=== PATIENT | male | born 1965 | race Hispanic/Latino ===

== ENCOUNTER 2021-11-12 17:55 | Inpatient (IN) | payer BC ==
[2021-11-12] MEDS ORDERED: Vancomycin 1 GM/200 ML BAG ONE (18:35)
[2021-11-12] MEDS ORDERED: Labetalol HCl 100 MG/20 ML VIAL ONE (18:35)
[2021-11-12 18:49] LABS: #Basophils 0.1 thou/uL (0.0-0.2); #Eosinphils 0.3 thou/uL (0.0-0.7); #Lymphocytes 0.9 thou/uL (1.20-3.40); #Monocytes 0.6 thou/uL (0.11-0.59); #Neutrophils 6.8 thou/uL (1.40-6.50); %Basophils 0.8 % (0.0-1.0); %Eosinophils 3.8 % (0.0-10.0); %Lymphocytes 10.4 % (21.0-51.0); %Monocytes 6.4 % (0.0-10.0); %Neutrophils 78.5 % (42.0-75.0); Hemoglobin 14.7 g/dL (14.0-18.0); Mean Corpuscular HGB CONC 31.2 g/dL (32.0-36.0); Mean Corpuscular Hemoglobin 26.9 pg (27.0-31.0); Mean Platelet Volume 8.2 fL (7.4-10.4); Platelet Count 265 thou/uL (130-400); RBC Distribution Width 13.1 % (11.5-14.5); Red Blood Cell (RBC) Count 5.47 mill/uL (4.70-6.10); White Blood Cell (WBC) Count 8.7 thou/uL (4.8-10.8)
[2021-11-12] MEDS ORDERED: hydrALAZINE 20 MG/ML VIAL ONE (18:58)
[2021-11-12] MEDS ORDERED: Cefepime 1 GM VIAL ONE (19:02)
[2021-11-12 19:08] LABS: ALT (SGPT) 24 U/L (8-55); AST (SGOT) 23 U/L (5-34); Albumin 3.4 g/dL (3.5-5.0); Alkaline Phosphatase 237 U/L (40-110); Anion Gap 13 mmol/L (10-20); BUN (Urea Nitrogen) 23 mg/dL (8.4-25.7); Bilirubin, Total 0.4 mg/dL (0.2-1.2); Calc. Creatinine Clearance 0 mL/min (70-130); Calcium 9.2 mg/dL (7.8-10.44); Carbon Dioxide 24 mmol/L (22-29); Chloride 102 mmol/L (98-107); Glucose 332 mg/dL (70-105); Potassium 4.3 mmol/L (3.5-5.1); Protein, Total 7.4 g/dL (6.0-8.3); Sodium 135 mmol/L (136-145)
[2021-11-12] MEDS ORDERED: Aspirin 325 MG TAB ONE (20:22)
[2021-11-12] MEDS ORDERED: Insulin Regular 300 UNITS/3 ML VIAL ONE ×2 (20:36→20:38)
[2021-11-12] MEDS ORDERED: Ondansetron ODT 4 MG TAB PO PRN (20:48)
[2021-11-12] MEDS ORDERED: Ondansetron PF 4 MG/2 ML Vial IVP PRN (20:48)
[2021-11-12] MEDS ORDERED: Dextrose 5% in Water 1,000 ML IV PRN (20:48)
[2021-11-12] MEDS ORDERED: Acetaminophen 650 MG Suppository PR PRN (20:48)
[2021-11-12] MEDS ORDERED: Dextrose 50% Abboject 50 ML SYRINGE SLOW IVP PRN (20:48)
[2021-11-12] MEDS ORDERED: Piperacillin/Tazobactam 3.375 GM in Sodium Chloride 0.9% 100 ML IVPB SCH (22:00)
[2021-11-12] MEDS ORDERED: Amlodipine 10 MG TAB PO SCH (22:15)
[2021-11-12] MEDS: HumaLOG 300 UNITS/3 ML VIAL SC PRN (22:22)
[2021-11-12] MEDS: hydrALAZINE 20 MG/ML VIAL SLOW IVP PRN (22:22)
[2021-11-12 22:45] LABS: Troponin I 0.033 ng/mL (< 0.028)
[2021-11-13] MEDS: Piperacillin/Tazobactam 3.375 GM in Sodium Chloride 0.9% 100 ML IVPB SCH ×3 (02:27→17:56)
[2021-11-13] MEDS: hydrALAZINE 20 MG/ML VIAL SLOW IVP PRN ×2 (04:51→17:57)
[2021-11-13 04:56] LABS: #Basophils 0.1 thou/uL (0.0-0.2); #Eosinphils 0.3 thou/uL (0.0-0.7); #Neutrophils 8.9 thou/uL (1.40-6.50); %Basophils 0.7 % (0.0-1.0); %Eosinophils 2.6 % (0.0-10.0); %Monocytes 8.5 % (0.0-10.0); %Neutrophils 79.2 % (42.0-75.0); Hemoglobin 14.3 g/dL (14.0-18.0); Mean Corpuscular HGB CONC 30.9 g/dL (32.0-36.0); Mean Corpuscular Hemoglobin 26.8 pg (27.0-31.0); Mean Corpuscular Volume 86.7 fL (78.0-98.0); Mean Platelet Volume 8.5 fL (7.4-10.4); Platelet Count 265 thou/uL (130-400); RBC Distribution Width 13.2 % (11.5-14.5); Red Blood Cell (RBC) Count 5.33 mill/uL (4.70-6.10); White Blood Cell (WBC) Count 11.2 thou/uL (4.8-10.8)
[2021-11-13 05:12] LABS: Hemoglobin A1c 7.9 % (4.0-6.0)
[2021-11-13 05:24] LABS: Anion Gap 11 mmol/L (10-20); BUN (Urea Nitrogen) 16 mg/dL (8.4-25.7); Calc. Creatinine Clearance 119 mL/min (70-130); Calcium 8.9 mg/dL (7.8-10.44); Carbon Dioxide 27 mmol/L (22-29); Chloride 105 mmol/L (98-107); Glucose 150 mg/dL (70-105); Potassium 3.9 mmol/L (3.5-5.1); Sodium 139 mmol/L (136-145)
[2021-11-13] MEDS ORDERED: Losartan 25 MG TAB PO SCH (09:00)
[2021-11-13] MEDS: Amlodipine 10 MG TAB PO SCH (09:14)
[2021-11-13] MEDS: Enoxaparin Sodium 40 MG/0.4 ML SYRINGE SC SCH (09:15)
[2021-11-13 11:46] LABS: SARS-CoV-2 PCR by NAA Not Detected (NotDetected)
[2021-11-13 14:45] VITALS: BMI 29.9
[2021-11-13] MEDS: HumaLOG 300 UNITS/3 ML VIAL SC PRN (23:06)
[2021-11-14] MEDS: Piperacillin/Tazobactam 3.375 GM in Sodium Chloride 0.9% 100 ML IVPB SCH ×3 (02:38→18:14)
[2021-11-14] MEDS: hydrALAZINE 20 MG/ML VIAL SLOW IVP PRN (04:12)
[2021-11-14 05:28] LABS: ALT (SGPT) 25 U/L (8-55); AST (SGOT) 22 U/L (5-34); Albumin 3.3 g/dL (3.5-5.0); Alkaline Phosphatase 190 U/L (40-110); Anion Gap 13 mmol/L (10-20); BUN (Urea Nitrogen) 18 mg/dL (8.4-25.7); Bilirubin, Total 0.6 mg/dL (0.2-1.2); Calc. Creatinine Clearance 110 mL/min (70-130); Calcium 9.4 mg/dL (7.8-10.44); Carbon Dioxide 24 mmol/L (22-29); Chloride 104 mmol/L (98-107); Glucose 154 mg/dL (70-105); Potassium 3.9 mmol/L (3.5-5.1); Protein, Total 7.3 g/dL (6.0-8.3); Sodium 137 mmol/L (136-145)
[2021-11-14 08:36] LABS: #Eosinphils 0.4 thou/uL (0.0-0.7); #Monocytes 0.8 thou/uL (0.11-0.59); #Neutrophils 8.1 thou/uL (1.40-6.50); %Basophils 0.5 % (0.0-1.0); %Eosinophils 4.1 % (0.0-10.0); %Lymphocytes 9.4 % (21.0-51.0); %Monocytes 7.4 % (0.0-10.0); %Neutrophils 78.6 % (42.0-75.0); Hemoglobin 15.2 g/dL (14.0-18.0); Mean Corpuscular HGB CONC 30.7 g/dL (32.0-36.0); Mean Corpuscular Hemoglobin 26.7 pg (27.0-31.0); Mean Corpuscular Volume 87.3 fL (78.0-98.0); Mean Platelet Volume 8.8 fL (7.4-10.4); Platelet Count 300 thou/uL (130-400); RBC Distribution Width 13.6 % (11.5-14.5); White Blood Cell (WBC) Count 10.3 thou/uL (4.8-10.8)
[2021-11-14] MEDS: Amlodipine 10 MG TAB PO SCH (09:48)
[2021-11-14] MEDS: Enoxaparin Sodium 40 MG/0.4 ML SYRINGE SC SCH (09:48)
[2021-11-14] MEDS: Losartan 25 MG TAB PO SCH (09:49)
[2021-11-14] MEDS ORDERED: Piperacillin/Tazobactam 3.375 GM VIAL ONE (09:52)
[2021-11-14] MEDS: HumaLOG 300 UNITS/3 ML VIAL SC PRN ×2 (18:14→20:15)
[2021-11-14] MEDS ORDERED: Metoprolol Tartrate 25 MG TAB PO SCH (21:00)
[2021-11-15] MEDS: Piperacillin/Tazobactam 3.375 GM in Sodium Chloride 0.9% 100 ML IVPB SCH ×3 (01:27→18:40)
[2021-11-15] MEDS: hydrALAZINE 20 MG/ML VIAL SLOW IVP PRN (04:49)
[2021-11-15] MEDS: Amlodipine 10 MG TAB PO SCH (09:40)
[2021-11-15] MEDS: Losartan 25 MG TAB PO SCH (09:41)
[2021-11-15] MEDS: Metoprolol Tartrate 50 MG TAB PO SCH ×2 (09:41→20:43)
[2021-11-15] MEDS: Enoxaparin Sodium 40 MG/0.4 ML SYRINGE SC SCH (09:41)
[2021-11-15] MEDS: HumaLOG 300 UNITS/3 ML VIAL SC PRN ×2 (18:40→23:23)
[2021-11-16] MEDS: Acetaminophen 325 MG TAB PO PRN ×3 (01:25→13:14)
[2021-11-16] MEDS: hydrALAZINE 20 MG/ML VIAL SLOW IVP PRN (01:27)
[2021-11-16] MEDS: Piperacillin/Tazobactam 3.375 GM in Sodium Chloride 0.9% 100 ML IVPB SCH ×2 (01:30→09:26)
[2021-11-16] MEDS: HumaLOG 300 UNITS/3 ML VIAL SC PRN ×3 (06:17→22:10)
[2021-11-16] MEDS ORDERED: NIFEdipine XL 60 MG TAB PO SCH (09:00)
[2021-11-16] MEDS: Losartan 25 MG TAB PO SCH (09:25)
[2021-11-16] MEDS: Metoprolol Tartrate 50 MG TAB PO SCH ×2 (09:25→22:06)
[2021-11-16] MEDS: Enoxaparin Sodium 40 MG/0.4 ML SYRINGE SC SCH (09:25)
[2021-11-16] MEDS ORDERED: Doxycycline 100 MG CAP PO SCH (14:00)
[2021-11-16] MEDS: Acetaminophen/Codeine 30-300mg Tablet PO PRN (15:09)
[2021-11-16] MEDS: Doxycycline 100 MG CAP PO SCH (22:06)
[2021-11-17] MEDS: hydrALAZINE 20 MG/ML VIAL SLOW IVP PRN (03:59)
[2021-11-17] MEDS: Acetaminophen/Codeine 30-300mg Tablet PO PRN (06:01)
[2021-11-17] MEDS: Doxycycline 100 MG CAP PO SCH (08:48)
[2021-11-17] MEDS: Losartan 25 MG TAB PO SCH (08:48)
[2021-11-17] MEDS: Enoxaparin Sodium 40 MG/0.4 ML SYRINGE SC SCH (08:48)
[2021-11-17] MEDS: Metoprolol Tartrate 50 MG TAB PO SCH (08:49)
[2021-11-17] MEDS ORDERED: NIFEdipine XL 60 MG TAB PO SCH (09:00)
[2021-11-17 11:19] VITALS: BP 118/64; TEMP 97.7
== END 2021-11-17 15:31 | disposition home or self-care (01) | DRG 638 ==
LOC: ERS 17:55 → 2NO 19:34
PROVIDERS: ADMIT Internal Medicine; ATTEND Internal Medicine
DX: E11.621 Type 2 diabetes mellitus with foot ulcer (principal); E87.1 Hypo-osmolality and hyponatremia; I47.2 Ventricular tachycardia; Z20.822 Contact with and (suspected) exposure to COVID-19; I10 Essential (primary) hypertension; L97.519 Non-pressure chronic ulcer of other part of right foot with unspecified severity; I16.0 Hypertensive urgency; Z91.14 Patient's other noncompliance with medication regimen; Z79.84 Long term (current) use of oral hypoglycemic drugs; Z79.899 Other long term (current) drug therapy; Z90.49 Acquired absence of other specified parts of digestive tract
CPT/HCPCS: 36415; 36416; 71045; 80048; 80053; 82553; 83036; 83605; 83735; 83880; 84484; 85025; 85379; 87040; 87070; 87186; 87205; 93005; 93010; 93306; 96365; 96366; 96368; 96375; J0360; J0692; J1650; J1815; J2543; J3370; J3490; U0003; U0005

== ENCOUNTER 2022-04-13 06:47 | Inpatient (IN) | payer BC ==
[2022-04-13 08:24] LABS: Hemoglobin 13.4 g/dL (14.0-18.0); Mean Corpuscular HGB CONC 32.2 g/dL (32.0-36.0); Mean Corpuscular Hemoglobin 28.8 pg (27.0-31.0); Mean Corpuscular Volume 89.5 fL (78.0-98.0); Mean Platelet Volume 8.7 fL (7.4-10.4); Platelet Count 201 thou/uL (130-400); RBC Distribution Width 12.9 % (11.5-14.5); Red Blood Cell (RBC) Count 4.65 mill/uL (4.70-6.10); White Blood Cell (WBC) Count 10.6 thou/uL (4.8-10.8)
[2022-04-13 08:45] LABS: Band 7 % (5-11); Eosinophils 3 % (0-10); Lymphocytes 14 % (21-51); MDiff Complete? YES; Monocytes 8 % (0-10); Neutrophil 68 % (42-75); Platelet Morphology Comment Appears Adequate; RBC Morphology Normal
[2022-04-13 08:56] LABS: ALT (SGPT) 29 U/L (8-55); AST (SGOT) 20 U/L (5-34); Albumin 3.3 g/dL (3.5-5.0); Alkaline Phosphatase 212 U/L (40-110); Anion Gap 11 mmol/L (10-20); BUN (Urea Nitrogen) 23 mg/dL (8.4-25.7); Bilirubin, Total 0.5 mg/dL (0.2-1.2); Calc. Creatinine Clearance 0 mL/min (70-130); Calcium 9.4 mg/dL (7.8-10.44); Carbon Dioxide 22 mmol/L (22-29); Chloride 105 mmol/L (98-107); Estimated GFR 78; Glucose 264 mg/dL (70-105); Protein, Total 6.3 g/dL (6.0-8.3); Sodium 134 mmol/L (136-145)
[2022-04-13 09:15] LABS: CKMB 2.8 ng/mL (0-6.6)
[2022-04-13] MEDS ORDERED: Acetaminophen 650 MG Suppository PR PRN (11:07)
[2022-04-13] MEDS ORDERED: hydrALAZINE 20 MG/ML VIAL ONE (11:15)
[2022-04-13] MEDS ORDERED: Amlodipine 5 MG TAB ONE (11:15)
[2022-04-13] MEDS ORDERED: Ondansetron ODT 4 MG TAB PO PRN (11:22)
[2022-04-13] MEDS ORDERED: Ondansetron PF 4 MG/2 ML Vial IVP PRN (11:22)
[2022-04-13] MEDS ORDERED: Dextrose 50% Abboject 50 ML SYRINGE SLOW IVP PRN (11:37)
[2022-04-13] MEDS ORDERED: Dextrose 5% in Water 1,000 ML IV PRN (11:37)
[2022-04-13 11:56] LABS: Troponin I 0.076 ng/mL (< 0.028)
[2022-04-13 12:06] LABS: Magnesium 1.9 mg/dL (1.6-2.6)
[2022-04-13 12:17] LABS: Hemoglobin A1c 7.6 % (4.0-6.0)
[2022-04-13 13:10] VITALS: BMI 32.7
[2022-04-13] MEDS ORDERED: Amlodipine 5 MG TAB PO SCH (13:45)
[2022-04-13] MEDS ORDERED: FLU VACC QS2022-23(6MOS UP)/PF 60 MCG/0.5 ML SYRINGE IM ONE (14:30)
[2022-04-13 14:32] LABS: Troponin I 0.077 ng/mL (< 0.028)
[2022-04-13] MEDS: hydrALAZINE 20 MG/ML VIAL SLOW IVP PRN (16:23)
[2022-04-13] MEDS: Insulin Regular 300 UNITS/3 ML VIAL SC PRN (18:36)
[2022-04-13] MEDS: Famotidine 20 MG TAB PO SCH (19:42)
[2022-04-14] MEDS: hydrALAZINE 20 MG/ML VIAL SLOW IVP PRN ×4 (00:18→23:47)
[2022-04-14 05:01] LABS: #Basophils 0.1 thou/uL (0.0-0.2); #Eosinphils 0.3 thou/uL (0.0-0.7); #Lymphocytes 1.1 thou/uL (1.20-3.40); #Monocytes 0.8 thou/uL (0.11-0.59); #Neutrophils 6.6 thou/uL (1.40-6.50); %Basophils 0.8 % (0.0-1.0); %Eosinophils 3.9 % (0.0-10.0); %Lymphocytes 11.9 % (21.0-51.0); %Neutrophils 74.4 % (42.0-75.0); Hemoglobin 13.2 g/dL (14.0-18.0); Mean Corpuscular HGB CONC 31.6 g/dL (32.0-36.0); Mean Corpuscular Hemoglobin 28.4 pg (27.0-31.0); Mean Corpuscular Volume 89.7 fl (78.0-98.0); Mean Platelet Volume 8.9 fL (7.4-10.4); Platelet Count 214 thou/uL (130-400); RBC Distribution Width 12.9 % (11.5-14.5); Red Blood Cell (RBC) Count 4.65 mill/uL (4.70-6.10); White Blood Cell (WBC) Count 8.9 thou/uL (4.8-10.8)
[2022-04-14 05:20] LABS: Iron Binding Capacity, Total 358 mcg/dL (261-462)
[2022-04-14 05:21] LABS: Iron 41 ug/dL (65-175)
[2022-04-14 05:30] LABS: Anion Gap 12 mmol/L (10-20); BUN (Urea Nitrogen) 18 mg/dL (8.4-25.7); Calc. Creatinine Clearance 110 mL/min (70-130); Calcium 9.3 mg/dL (7.8-10.44); Carbon Dioxide 24 mmol/L (22-29); Chloride 105 mmol/L (98-107); Estimated GFR 102; Glucose 151 mg/dL (70-105); Iron 44 ug/dL (65-175); Iron Binding Capacity, Total 364 mcg/dL (261-462); Potassium 3.8 mmol/L (3.5-5.1); Sodium 137 mmol/L (136-145)
[2022-04-14] MEDS: Famotidine 20 MG TAB PO SCH ×2 (08:58→19:51)
[2022-04-14] MEDS ORDERED: Amlodipine 5 MG TAB PO SCH ×2 (09:00→11:45)
[2022-04-14] MEDS ORDERED: Losartan 25 MG TAB PO SCH (11:45)
[2022-04-14] MEDS: Insulin Regular 300 UNITS/3 ML VIAL SC PRN ×2 (12:40→16:52)
[2022-04-15 05:58] LABS: Anion Gap 12 mmol/L (10-20); BUN (Urea Nitrogen) 17 mg/dL (8.4-25.7); Calc. Creatinine Clearance 115 mL/min (70-130); Calcium 9.1 mg/dL (7.8-10.44); Carbon Dioxide 23 mmol/L (22-29); Chloride 104 mmol/L (98-107); Estimated GFR 103; Glucose 134 mg/dL (70-105); Potassium 3.5 mmol/L (3.5-5.1); Sodium 135 mmol/L (136-145)
[2022-04-15 06:17] LABS: Magnesium 1.7 mg/dL (1.6-2.6)
[2022-04-15] MEDS ORDERED: Electrolyte Replacement Protocol 1 EACH FS SCH (07:30)
[2022-04-15] MEDS ORDERED: Electrolyte Replacement Protocol FS PRN (07:45)
[2022-04-15] MEDS ORDERED: Magnesium 2 GM/50 ML(in water) 2 GM in Premix Bag 1 BAG IVPB SCH (08:00)
[2022-04-15] MEDS ORDERED: Losartan 25 MG TAB PO SCH (09:00)
[2022-04-15] MEDS ORDERED: Amlodipine 10 MG TAB PO SCH (09:00)
[2022-04-15] MEDS: NIFEdipine XL 60 MG TAB PO SCH (09:02)
[2022-04-15] MEDS: Famotidine 20 MG TAB PO SCH ×2 (09:04→20:51)
[2022-04-15] MEDS ORDERED: Potassium Chloride 20 MEQ TAB PO SCH (09:15)
[2022-04-15] MEDS: hydrALAZINE 20 MG/ML VIAL SLOW IVP PRN (10:32)
[2022-04-15] MEDS ORDERED: NIFEdipine XL 30 MG TAB PO SCH (16:00)
[2022-04-15] MEDS: Insulin Regular 300 UNITS/3 ML VIAL SC PRN (18:25)
[2022-04-15] MEDS: Losartan 25 MG TAB PO SCH (20:51)
[2022-04-16 05:10] LABS: Phosphorus 3.4 mg/dL (2.3-4.7)
[2022-04-16 05:18] LABS: Anion Gap 15 mmol/L (10-20); BUN (Urea Nitrogen) 20 mg/dL (8.4-25.7); Calc. Creatinine Clearance 104 mL/min (70-130); Calcium 9.3 mg/dL (7.8-10.44); Carbon Dioxide 21 mmol/L (22-29); Chloride 105 mmol/L (98-107); Estimated GFR 98; Glucose 125 mg/dL (70-105); Magnesium 2.1 mg/dL (1.6-2.6); Potassium 4.1 mmol/L (3.5-5.1); Sodium 137 mmol/L (136-145)
[2022-04-16] MEDS: Famotidine 20 MG TAB PO SCH ×2 (08:10→20:44)
[2022-04-16] MEDS: Losartan 25 MG TAB PO SCH ×2 (08:10→16:18)
[2022-04-16] MEDS: NIFEdipine XL 60 MG TAB PO SCH (08:10)
[2022-04-16] MEDS ORDERED: Regadenoson 0.4 MG/5 ML SYRINGE ONE (09:03)
[2022-04-16] MEDS: hydrALAZINE 25 MG TAB PO PRN (16:18)
[2022-04-16] MEDS: Insulin Regular 300 UNITS/3 ML VIAL SC PRN (16:45)
[2022-04-16] MEDS ORDERED: metFORMIN 500 MG TAB PO SCH (17:30)
[2022-04-17] MEDS: hydrALAZINE 25 MG TAB PO PRN ×3 (01:19→23:24)
[2022-04-17] MEDS: Acetaminophen 325 MG TAB PO PRN (04:16)
[2022-04-17] MEDS: Losartan 25 MG TAB PO SCH ×2 (05:10→19:59)
[2022-04-17] MEDS: NIFEdipine XL 60 MG TAB PO SCH (05:11)
[2022-04-17] MEDS: Famotidine 20 MG TAB PO SCH ×2 (05:11→19:59)
[2022-04-17 05:25] LABS: Anion Gap 12 mmol/L (10-20); BUN (Urea Nitrogen) 18 mg/dL (8.4-25.7); Calc. Creatinine Clearance 115 mL/min (70-130); Calcium 9.5 mg/dL (7.8-10.44); Carbon Dioxide 22 mmol/L (22-29); Chloride 105 mmol/L (98-107); Estimated GFR 103; Glucose 123 mg/dL (70-105); Potassium 4.1 mmol/L (3.5-5.1); Sodium 135 mmol/L (136-145)
[2022-04-17] MEDS ORDERED: metFORMIN 500 MG TAB PO SCH (08:00)
[2022-04-17] MEDS ORDERED: Heparin 10,000 UNITS/ 10 ML VIAL ONE (10:22)
[2022-04-17] MEDS ORDERED: Midazolam HCl 2 mg/2 ml Vial ONE (10:22)
[2022-04-17] MEDS ORDERED: FENTANYL 50 MCG/ML VIAL 50 MCG/ML VIAL ONE (10:22)
[2022-04-17] MEDS ORDERED: Lidocaine 1% (PF) 30 ML VIAL ONE (10:22)
[2022-04-17] MEDS ORDERED: Nitroglycerin 100MG/250ML BOT 0 ML ONE (10:22)
[2022-04-17] MEDS ORDERED: Acetaminophen/Codeine 30-300mg Tablet PO PRN (14:38)
[2022-04-17] MEDS ORDERED: Nitroglycerin 0.4 MG TAB (25 Tab Bottle) SL PRN (14:38)
[2022-04-17] MEDS ORDERED: Sodium Chloride 0.9% 200 ML IV PRN (14:38)
[2022-04-17] MEDS: Atorvastatin Calcium 20 MG TAB PO SCH (19:59)
[2022-04-17] MEDS: Insulin Regular 300 UNITS/3 ML VIAL SC PRN (20:54)
[2022-04-18] MEDS: Acetaminophen 325 MG TAB PO PRN (03:06)
[2022-04-18 04:54] LABS: #Basophils 0.1 thou/uL (0.0-0.2); #Eosinphils 0.4 thou/uL (0.0-0.7); #Monocytes 1.1 thou/uL (0.11-0.59); %Basophils 0.6 % (0.0-1.0); %Eosinophils 3.9 % (0.0-10.0); %Lymphocytes 9.5 % (21.0-51.0); %Monocytes 10.3 % (0.0-10.0); %Neutrophils 75.7 % (42.0-75.0); Hemoglobin 12.8 g/dL (14.0-18.0); Mean Corpuscular HGB CONC 30.6 g/dL (32.0-36.0); Mean Corpuscular Hemoglobin 27.4 pg (27.0-31.0); Mean Corpuscular Volume 89.6 fl (78.0-98.0); Mean Platelet Volume 8.3 fL (7.4-10.4); Platelet Count 214 thou/uL (130-400); RBC Distribution Width 12.8 % (11.5-14.5); Red Blood Cell (RBC) Count 4.66 mill/uL (4.70-6.10); White Blood Cell (WBC) Count 10.5 thou/uL (4.8-10.8)
[2022-04-18 05:21] LABS: ALT (SGPT) 23 U/L (8-55); AST (SGOT) 19 U/L (5-34); Albumin 3.1 g/dL (3.5-5.0); Alkaline Phosphatase 149 U/L (40-110); Anion Gap 11 mmol/L (10-20); BUN (Urea Nitrogen) 19 mg/dL (8.4-25.7); Bilirubin, Total 0.6 mg/dL (0.2-1.2); Calc. Creatinine Clearance 121 mL/min (70-130); Calcium 8.9 mg/dL (7.8-10.44); Carbon Dioxide 22 mmol/L (22-29); Chloride 106 mmol/L (98-107); Estimated GFR 105; Globulin 3.1 g/dL (2.4-3.5); Glucose 167 mg/dL (70-105); Potassium 4.1 mmol/L (3.5-5.1); Protein, Total 6.2 g/dL (6.0-8.3); Sodium 135 mmol/L (136-145)
[2022-04-18] MEDS: Clopidogrel Bisulfate 75 MG TAB PO SCH (08:30)
[2022-04-18] MEDS: Losartan 25 MG TAB PO SCH ×2 (08:30→20:09)
[2022-04-18] MEDS: NIFEdipine XL 60 MG TAB PO SCH (08:30)
[2022-04-18] MEDS: Famotidine 20 MG TAB PO SCH ×2 (08:30→20:09)
[2022-04-18] MEDS: Aspirin 81 mg Enteric Coated Tablet PO SCH (08:30)
[2022-04-18 11:14] LABS: Bacteria/HPF None Seen HPF (None Seen); Bilirubin Negative (Negative); Blood, Urine Negative (Negative); Clarity Clear (Clear); Glucose, Urine (Dipstick) >=1000 mg/dL (Negative); Ketone, Urine Negative (Negative); Leukocyte Negative Leu/uL (Negative); Nitrite Negative (Negative); Protein, Urine (Dipstick) 100 mg/dL (Neg-Trace); RBC/HPF 0-3 HPF (0-3); Specific Gravity, Urine 1.017 (1.002-1.036); Squamous Epithelial None Seen HPF (0-3); pH, Urine 6.5 (5.0-9.0)
[2022-04-18 11:15] LABS: Urine Culture Reflex Yes Yes
[2022-04-18] MEDS: Insulin Regular 300 UNITS/3 ML VIAL SC PRN ×3 (12:45→20:10)
[2022-04-18] MEDS: Atorvastatin Calcium 20 MG TAB PO SCH (20:09)
[2022-04-18] MEDS: hydrALAZINE 25 MG TAB PO PRN (23:53)
[2022-04-19] MEDS: hydrALAZINE 20 MG/ML VIAL SLOW IVP PRN (04:37)
[2022-04-19 05:19] LABS: #Basophils 0.1 thou/uL (0.0-0.2); #Eosinphils 0.4 thou/uL (0.0-0.7); #Lymphocytes 1.1 thou/uL (1.20-3.40); #Monocytes 1.1 thou/uL (0.11-0.59); #Neutrophils 8.2 thou/uL (1.40-6.50); %Basophils 0.7 % (0.0-1.0); %Eosinophils 3.4 % (0.0-10.0); %Lymphocytes 9.8 % (21.0-51.0); %Neutrophils 76.1 % (42.0-75.0); Hemoglobin 13.8 g/dL (14.0-18.0); Mean Corpuscular HGB CONC 33.6 g/dL (32.0-36.0); Mean Corpuscular Hemoglobin 30.1 pg (27.0-31.0); Mean Corpuscular Volume 89.6 fl (78.0-98.0); Mean Platelet Volume 8.3 fL (7.4-10.4); Platelet Count 230 thou/uL (130-400); RBC Distribution Width 12.6 % (11.5-14.5); Red Blood Cell (RBC) Count 4.57 mill/uL (4.70-6.10); White Blood Cell (WBC) Count 10.8 thou/uL (4.8-10.8)
[2022-04-19 05:39] LABS: ALT (SGPT) 23 U/L (8-55); AST (SGOT) 17 U/L (5-34); Albumin 3.4 g/dL (3.5-5.0); Alkaline Phosphatase 168 U/L (40-110); Anion Gap 13 mmol/L (10-20); BUN (Urea Nitrogen) 14 mg/dL (8.4-25.7); Bilirubin, Total 0.6 mg/dL (0.2-1.2); Calc. Creatinine Clearance 128 mL/min (70-130); Calcium 9.1 mg/dL (7.8-10.44); Carbon Dioxide 22 mmol/L (22-29); Chloride 106 mmol/L (98-107); Estimated GFR 107; Globulin 3.4 g/dL (2.4-3.5); Glucose 122 mg/dL (70-105); Potassium 3.8 mmol/L (3.5-5.1); Protein, Total 6.8 g/dL (6.0-8.3); Sodium 137 mmol/L (136-145)
[2022-04-19] MEDS: Aspirin 81 mg Enteric Coated Tablet PO SCH (08:12)
[2022-04-19] MEDS: Clopidogrel Bisulfate 75 MG TAB PO SCH (08:12)
[2022-04-19] MEDS: Famotidine 20 MG TAB PO SCH (08:13)
[2022-04-19] MEDS: Losartan 25 MG TAB PO SCH (08:14)
[2022-04-19] MEDS: NIFEdipine XL 60 MG TAB PO SCH (08:15)
[2022-04-19] MEDS: Insulin Regular 300 UNITS/3 ML VIAL SC PRN (11:14)
[2022-04-19 16:20] VITALS: BP 129/79; TEMP 98.1
== END 2022-04-19 17:50 | disposition home or self-care (01) | DRG 287 ==
LOC: ERS 06:47 → 2SW 11:36 → OBSVTOIN 04-15 11:11
PROVIDERS: ADMIT Internal Medicine; ATTEND Internal Medicine
PROC: 4A023N7 Measurement of Cardiac Sampling and Pressure, Left Heart, Percutaneous Approach (ICD-10-PCS; principal; 2022-04-17)
PROC: B2151ZZ Fluoroscopy of Left Heart using Low Osmolar Contrast (ICD-10-PCS; 2022-04-17)
PROC: B2111ZZ Fluoroscopy of Multiple Coronary Arteries using Low Osmolar Contrast (ICD-10-PCS; 2022-04-17)
DX: R55 Syncope and collapse (principal); Z20.822 Contact with and (suspected) exposure to COVID-19; Z23 Encounter for immunization; I47.20 Ventricular tachycardia, unspecified; I16.1 Hypertensive emergency; L97.919 Non-pressure chronic ulcer of unspecified part of right lower leg with unspecified severity; E11.9 Type 2 diabetes mellitus without complications; I10 Essential (primary) hypertension; I25.10 Atherosclerotic heart disease of native coronary artery without angina pectoris; R00.1 Bradycardia, unspecified; K40.90 Unilateral inguinal hernia, without obstruction or gangrene, not specified as recurrent; R77.8 Other specified abnormalities of plasma proteins; E87.6 Hypokalemia; E83.42 Hypomagnesemia; Z79.899 Other long term (current) drug therapy; Z79.84 Long term (current) use of oral hypoglycemic drugs; Z79.82 Long term (current) use of aspirin; Z91.011 Allergy to milk products; Z90.49 Acquired absence of other specified parts of digestive tract; Z82.49 Family history of ischemic heart disease and other diseases of the circulatory system; Z83.3 Family history of diabetes mellitus
CPT/HCPCS: 36415; 36416; 70450; 71045; 74176; 76936; 78452; 80048; 80053; 81001; 82553; 83036; 83540; 83550; 83735; 84100; 84443; 84484; 85025; 87086; 90471; 90686; 90732; 93005; 93017; 93306; 94760; 96374; 96375; 97139; A9500; G0008; G0009; G0378; J0360; J1644; J1815; J2001; J2250; J2785; J3010; J3475; U0003; U0005

== ENCOUNTER 2022-06-11 09:05 | Inpatient (IN) | payer BC, OTHER, SELFPAY ==
[2022-06-11 09:34] LABS: #Basophils 0.1 thou/uL (0.0-0.2); #Eosinphils 0.5 thou/uL (0.0-0.7); #Lymphocytes 1.5 thou/uL (1.20-3.40); #Monocytes 1.1 thou/uL (0.11-0.59); #Neutrophils 8.3 thou/uL (1.40-6.50); %Basophils 0.6 % (0.0-1.0); %Eosinophils 4.2 % (0.0-10.0); %Lymphocytes 13.3 % (21.0-51.0); %Monocytes 9.6 % (0.0-10.0); %Neutrophils 72.2 % (42.0-75.0); Hemoglobin 13.5 g/dL (14.0-18.0); Mean Corpuscular Hemoglobin 29.3 pg (27.0-31.0); Mean Corpuscular Volume 83.6 fl (78.0-98.0); Mean Platelet Volume 8.6 fL (7.4-10.4); Platelet Count 337 10x3/uL (130-400); RBC Distribution Width 13.5 % (11.5-14.5); Red Blood Cell (RBC) Count 4.61 mill/uL (4.70-6.10); White Blood Cell (WBC) Count 11.5 10x3/uL (4.8-10.8)
[2022-06-11 09:52] LABS: ALT (SGPT) 32 U/L (8-55); AST (SGOT) 25 U/L (5-34); Albumin 3.9 g/dL (3.5-5.0); Alkaline Phosphatase 263 U/L (40-110); Anion Gap 16 mmol/L (10-20); BUN (Urea Nitrogen) 24 mg/dL (8.4-25.7); Bilirubin, Total 0.5 mg/dL (0.2-1.2); Calc. Creatinine Clearance 0 mL/min (70-130); Calcium 9.6 mg/dL (7.8-10.44); Carbon Dioxide 19 mmol/L (22-29); Chloride 104 mmol/L (98-107); Estimated GFR 90; Globulin 4.2 g/dL (2.4-3.5); Glucose 254 mg/dL (70-105); Potassium 4.2 mmol/L (3.5-5.1); Protein, Total 8.1 g/dL (6.0-8.3); Sodium 135 mmol/L (136-145)
[2022-06-11] MEDS ORDERED: Cefepime 2 GM VIAL ONE (11:38)
[2022-06-11] MEDS ORDERED: HumaLOG 300 UNITS/3 ML VIAL SC PRN (12:34)
[2022-06-11] MEDS ORDERED: Dextrose 50% Abboject 50 ML SYRINGE SLOW IVP PRN (12:34)
[2022-06-11] MEDS ORDERED: Dextrose 5% in Water 1,000 ML IV PRN (12:34)
[2022-06-11] MEDS ORDERED: Ondansetron PF 4 MG/2 ML Vial IVP PRN (12:44)
[2022-06-11] MEDS ORDERED: Vancomycin 1 GM/200 ML (FROZEN) BAG ONE (12:50)
[2022-06-11 14:13] VITALS: BMI 30.1
[2022-06-11] MEDS: HYDROcodone/Acetaminophen 5/325 mg Tablet PO PRN ×2 (14:32→18:04)
[2022-06-11] MEDS: Sodium Chloride 0.9% 1,000 ML IV SCH (14:33)
[2022-06-11 14:37] LABS: SARS-CoV-2 NAA Rapid Test Not Detected (NotDetected)
[2022-06-11] MEDS ORDERED: Vancomycin HCl 250 MG in Sodium Chloride 0.9% 100 ML IVPB SCH (15:00)
[2022-06-11] MEDS ORDERED: Vancomycin HCl 750 MG in Sodium Chloride 0.9% 250 ML 250 ML IVPB SCH (15:00)
[2022-06-11] MEDS ORDERED: Morphine 4 MG/ML VIAL ONE (15:10)
[2022-06-11] MEDS: cefTRIAXone\\ROCEPHIN 1 GM in Sodium Chloride 0.9% 100 ML IVPB SCH (15:11)
[2022-06-11] MEDS ORDERED: Morphine 4 MG/ML VIAL SLOW IVP SCH (15:15)
[2022-06-11] MEDS: HumaLOG 300 UNITS/3 ML VIAL SC PRN (17:11)
[2022-06-11] MEDS: Famotidine 20 MG TAB PO SCH (21:56)
[2022-06-11] MEDS: Atorvastatin Calcium 20 MG TAB PO SCH (21:57)
[2022-06-12] MEDS: VANCOMYCIN 1.25 GM/250 ML BAG 1.25 GM in Premix Bag 1 BAG IVPB SCH ×2 (00:38→13:31)
[2022-06-12] MEDS: HYDROcodone/Acetaminophen 5/325 mg Tablet PO PRN ×4 (00:43→15:18)
[2022-06-12] MEDS: Acetaminophen 325 MG TAB PO PRN (01:10)
[2022-06-12] MEDS: Sodium Chloride 0.9% 1,000 ML IV SCH (01:12)
[2022-06-12] MEDS: HumaLOG 300 UNITS/3 ML VIAL SC PRN (04:56)
[2022-06-12 06:17] LABS: #Basophils 0.1 thou/uL (0.0-0.2); #Eosinphils 0.5 thou/uL (0.0-0.7); #Lymphocytes 1.3 thou/uL (1.20-3.40); #Neutrophils 9.4 thou/uL (1.40-6.50); %Basophils 0.4 % (0.0-1.0); %Eosinophils 4.2 % (0.0-10.0); %Lymphocytes 10.4 % (21.0-51.0); %Monocytes 8.3 % (0.0-10.0); %Neutrophils 76.7 % (42.0-75.0); Hemoglobin 11.1 g/dL (14.0-18.0); Mean Corpuscular HGB CONC 32.1 g/dL (32.0-36.0); Mean Corpuscular Hemoglobin 27.8 pg (27.0-31.0); Mean Corpuscular Volume 86.5 fl (78.0-98.0); Mean Platelet Volume 8.8 fL (7.4-10.4); Platelet Count 276 10x3/uL (130-400); RBC Distribution Width 13.5 % (11.5-14.5); White Blood Cell (WBC) Count 12.3 10x3/uL (4.8-10.8)
[2022-06-12 06:37] LABS: Anion Gap 11 mmol/L (10-20); BUN (Urea Nitrogen) 15 mg/dL (8.4-25.7); Calc. Creatinine Clearance 120 mL/min (70-130); Calcium 8.9 mg/dL (7.8-10.44); Carbon Dioxide 23 mmol/L (22-29); Chloride 103 mmol/L (98-107); Estimated GFR 106; Glucose 188 mg/dL (70-105); Sodium 133 mmol/L (136-145)
[2022-06-12] MEDS ORDERED: NIFEdipine XL 90 MG TAB PO SCH (09:00)
[2022-06-12] MEDS ORDERED: Losartan 25 MG TAB PO SCH (09:00)
[2022-06-12] MEDS ORDERED: Clopidogrel Bisulfate 75 MG TAB PO SCH (09:00)
[2022-06-12] MEDS ORDERED: Lidocaine Jelly 2% Urojet 10 ML TOP SCH (09:00)
[2022-06-12] MEDS: NIFEdipine XL 90 MG TAB PO SCH (09:21)
[2022-06-12] MEDS: Famotidine 20 MG TAB PO SCH ×2 (09:21→19:49)
[2022-06-12] MEDS: Losartan 25 MG TAB PO SCH (09:21)
[2022-06-12] MEDS ORDERED: Morphine 4 MG/ML VIAL ONE (10:14)
[2022-06-12] MEDS ORDERED: Carvedilol 6.25 MG TAB PO SCH (11:30)
[2022-06-12] MEDS: Aspirin 81 mg Enteric Coated Tablet PO SCH (11:44)
[2022-06-12] MEDS: cefTRIAXone\\ROCEPHIN 1 GM in Sodium Chloride 0.9% 100 ML IVPB SCH (15:18)
[2022-06-12] MEDS: Carvedilol 6.25 MG TAB PO SCH (17:12)
[2022-06-12] MEDS: Atorvastatin Calcium 20 MG TAB PO SCH (19:49)
[2022-06-13 00:25] LABS: Vancomycin, Trough 13.5 ug/mL
[2022-06-13] MEDS: VANCOMYCIN 1.25 GM/250 ML BAG 1.25 GM in Premix Bag 1 BAG IVPB SCH ×2 (01:10→12:04)
[2022-06-13] MEDS: HYDROcodone/Acetaminophen 5/325 mg Tablet PO PRN ×2 (05:17→10:11)
[2022-06-13] MEDS: HumaLOG 300 UNITS/3 ML VIAL SC PRN ×3 (05:19→17:00)
[2022-06-13 06:05] LABS: #Basophils 0.1 thou/uL (0.0-0.2); #Eosinphils 0.5 thou/uL (0.0-0.7); #Lymphocytes 1.3 thou/uL (1.20-3.40); #Neutrophils 7.9 thou/uL (1.40-6.50); %Basophils 0.5 % (0.0-1.0); %Eosinophils 5.1 % (0.0-10.0); %Lymphocytes 11.6 % (21.0-51.0); %Neutrophils 73.8 % (42.0-75.0); Hemoglobin 11.1 g/dL (14.0-18.0); Mean Corpuscular HGB CONC 33.3 g/dL (32.0-36.0); Mean Corpuscular Hemoglobin 28.2 pg (27.0-31.0); Mean Corpuscular Volume 84.6 fl (78.0-98.0); Mean Platelet Volume 8.8 fL (7.4-10.4); Platelet Count 237 10x3/uL (130-400); RBC Distribution Width 13.5 % (11.5-14.5); Red Blood Cell (RBC) Count 3.92 mill/uL (4.70-6.10); White Blood Cell (WBC) Count 10.8 10x3/uL (4.8-10.8)
[2022-06-13 06:27] LABS: Anion Gap 13 mmol/L (10-20); BUN (Urea Nitrogen) 14 mg/dL (8.4-25.7); Calc. Creatinine Clearance 128 mL/min (70-130); Calcium 8.8 mg/dL (7.8-10.44); Carbon Dioxide 20 mmol/L (22-29); Chloride 106 mmol/L (98-107); Estimated GFR 108; Glucose 174 mg/dL (70-105); Potassium 3.8 mmol/L (3.5-5.1); Sodium 135 mmol/L (136-145)
[2022-06-13] MEDS: Aspirin 81 mg Enteric Coated Tablet PO SCH (08:41)
[2022-06-13] MEDS: Losartan 25 MG TAB PO SCH (08:41)
[2022-06-13] MEDS: Famotidine 20 MG TAB PO SCH ×2 (08:41→20:25)
[2022-06-13] MEDS: NIFEdipine XL 90 MG TAB PO SCH (08:41)
[2022-06-13] MEDS: Carvedilol 6.25 MG TAB PO SCH ×2 (08:41→17:00)
[2022-06-13] MEDS: traMADol HCl 50 MG TAB PO PRN (11:01)
[2022-06-13] MEDS: Acetaminophen 325 MG TAB PO PRN ×2 (11:02→20:26)
[2022-06-13] MEDS: cefTRIAXone\\ROCEPHIN 1 GM in Sodium Chloride 0.9% 100 ML IVPB SCH (15:04)
[2022-06-13] MEDS: Atorvastatin Calcium 20 MG TAB PO SCH (20:25)
[2022-06-14] MEDS: VANCOMYCIN 1.25 GM/250 ML BAG 1.25 GM in Premix Bag 1 BAG IVPB SCH (01:17)
[2022-06-14 06:26] LABS: #Eosinphils 0.5 thou/uL (0.0-0.7); #Lymphocytes 1.1 thou/uL (1.20-3.40); #Monocytes 1.2 thou/uL (0.11-0.59); #Neutrophils 8.7 thou/uL (1.40-6.50); %Basophils 0.4 % (0.0-1.0); %Eosinophils 4.8 % (0.0-10.0); %Lymphocytes 9.3 % (21.0-51.0); %Monocytes 10.1 % (0.0-10.0); %Neutrophils 75.4 % (42.0-75.0); Hemoglobin 10.7 g/dL (14.0-18.0); Mean Corpuscular HGB CONC 34.2 g/dL (32.0-36.0); Mean Corpuscular Hemoglobin 29.2 pg (27.0-31.0); Mean Corpuscular Volume 85.5 fl (78.0-98.0); Mean Platelet Volume 8.6 fL (7.4-10.4); Platelet Count 204 10x3/uL (130-400); RBC Distribution Width 13.4 % (11.5-14.5); Red Blood Cell (RBC) Count 3.65 mill/uL (4.70-6.10); White Blood Cell (WBC) Count 11.5 10x3/uL (4.8-10.8)
[2022-06-14 06:46] LABS: Anion Gap 14 mmol/L (10-20); BUN (Urea Nitrogen) 19 mg/dL (8.4-25.7); Calc. Creatinine Clearance 96 mL/min (70-130); Calcium 8.9 mg/dL (7.8-10.44); Carbon Dioxide 20 mmol/L (22-29); Chloride 105 mmol/L (98-107); Estimated GFR 95; Glucose 172 mg/dL (70-105); Potassium 3.9 mmol/L (3.5-5.1); Sodium 135 mmol/L (136-145)
[2022-06-14] MEDS: Aspirin 81 mg Enteric Coated Tablet PO SCH (08:09)
[2022-06-14] MEDS: Losartan 25 MG TAB PO SCH (08:09)
[2022-06-14] MEDS: NIFEdipine XL 90 MG TAB PO SCH (08:09)
[2022-06-14] MEDS: Carvedilol 6.25 MG TAB PO SCH ×2 (08:09→15:31)
[2022-06-14] MEDS: Enoxaparin Sodium 40 MG/0.4 ML SYRINGE SC SCH (08:10)
[2022-06-14] MEDS: Famotidine 20 MG TAB PO SCH ×2 (08:10→21:11)
[2022-06-14] MEDS ORDERED: Lidocaine 4% Topical Sol 50 ML BOT TOP SCH (10:00)
[2022-06-14] MEDS: HYDROcodone/Acetaminophen 5/325 mg Tablet PO PRN ×2 (11:00→21:12)
[2022-06-14] MEDS ORDERED: Vancomycin 1 GM in Premix Bag 1 BAG IVPB SCH (13:00)
[2022-06-14] MEDS: HumaLOG 300 UNITS/3 ML VIAL SC PRN ×2 (13:11→17:49)
[2022-06-14] MEDS: Vancomycin 1 GM in Premix Bag 1 BAG IVPB SCH (13:11)
[2022-06-14] MEDS ORDERED: NIFEdipine XL 30 MG TAB PO SCH (14:15)
[2022-06-14] MEDS: cefTRIAXone\\ROCEPHIN 1 GM in Sodium Chloride 0.9% 100 ML IVPB SCH (15:31)
[2022-06-14] MEDS: Atorvastatin Calcium 20 MG TAB PO SCH (21:11)
[2022-06-15] MEDS: Vancomycin 1 GM in Premix Bag 1 BAG IVPB SCH ×3 (01:07→23:46)
[2022-06-15] MEDS: Aspirin 81 mg Enteric Coated Tablet PO SCH (08:25)
[2022-06-15] MEDS: NIFEdipine XL 60 MG TAB PO SCH (08:25)
[2022-06-15] MEDS: Losartan 25 MG TAB PO SCH (08:25)
[2022-06-15] MEDS: Enoxaparin Sodium 40 MG/0.4 ML SYRINGE SC SCH (08:26)
[2022-06-15] MEDS: Carvedilol 6.25 MG TAB PO SCH ×2 (08:26→15:46)
[2022-06-15] MEDS: Famotidine 20 MG TAB PO SCH ×2 (08:26→20:48)
[2022-06-15] MEDS: HYDROcodone/Acetaminophen 5/325 mg Tablet PO PRN ×2 (12:40→23:46)
[2022-06-15] MEDS: HumaLOG 300 UNITS/3 ML VIAL SC PRN ×2 (12:56→17:37)
[2022-06-15] MEDS: cefTRIAXone\\ROCEPHIN 1 GM in Sodium Chloride 0.9% 100 ML IVPB SCH (15:46)
[2022-06-15] MEDS: hydrALAZINE 25 MG TAB PO SCH ×2 (17:38→20:48)
[2022-06-15] MEDS: Atorvastatin Calcium 20 MG TAB PO SCH (20:48)
[2022-06-15] MEDS: metFORMIN XR 500 MG TAB PO SCH (20:49)
[2022-06-16 06:47] LABS: #Basophils 0.1 thou/uL (0.0-0.2); #Eosinphils 0.7 thou/uL (0.0-0.7); #Lymphocytes 1.1 thou/uL (1.20-3.40); #Monocytes 1.2 thou/uL (0.11-0.59); %Basophils 0.6 % (0.0-1.0); %Eosinophils 5.9 % (0.0-10.0); %Lymphocytes 10.1 % (21.0-51.0); %Monocytes 10.7 % (0.0-10.0); %Neutrophils 72.6 % (42.0-75.0); Hemoglobin 10.8 g/dL (14.0-18.0); Mean Corpuscular Volume 84.9 fl (78.0-98.0); Mean Platelet Volume 8.5 fL (7.4-10.4); Platelet Count 232 10x3/uL (130-400); RBC Distribution Width 13.3 % (11.5-14.5); Red Blood Cell (RBC) Count 3.85 mill/uL (4.70-6.10)
[2022-06-16 07:14] LABS: Anion Gap 13 mmol/L (10-20); BUN (Urea Nitrogen) 19 mg/dL (8.4-25.7); Calc. Creatinine Clearance 95 mL/min (70-130); Calcium 9.4 mg/dL (7.8-10.44); Carbon Dioxide 21 mmol/L (22-29); Chloride 102 mmol/L (98-107); Estimated GFR 93; Glucose 186 mg/dL (70-105); Potassium 4.3 mmol/L (3.5-5.1); Sodium 132 mmol/L (136-145)
[2022-06-16] MEDS: Enoxaparin Sodium 40 MG/0.4 ML SYRINGE SC SCH (08:29)
[2022-06-16] MEDS: NIFEdipine XL 60 MG TAB PO SCH (08:30)
[2022-06-16] MEDS: metFORMIN XR 500 MG TAB PO SCH ×2 (08:30→20:34)
[2022-06-16] MEDS: Losartan 25 MG TAB PO SCH (08:30)
[2022-06-16] MEDS: Famotidine 20 MG TAB PO SCH ×2 (08:30→20:34)
[2022-06-16] MEDS: Aspirin 81 mg Enteric Coated Tablet PO SCH (08:30)
[2022-06-16] MEDS: Carvedilol 6.25 MG TAB PO SCH ×2 (08:30→16:51)
[2022-06-16] MEDS: hydrALAZINE 25 MG TAB PO SCH ×4 (08:31→20:33)
[2022-06-16] MEDS: HYDROcodone/Acetaminophen 5/325 mg Tablet PO PRN (10:47)
[2022-06-16] MEDS: HumaLOG 300 UNITS/3 ML VIAL SC PRN (11:44)
[2022-06-16 12:56] LABS: Vancomycin, Trough 15.4 ug/mL
[2022-06-16] MEDS: Vancomycin 1 GM in Premix Bag 1 BAG IVPB SCH (13:03)
[2022-06-16] MEDS: cefTRIAXone\\ROCEPHIN 1 GM in Sodium Chloride 0.9% 100 ML IVPB SCH (16:51)
[2022-06-16] MEDS: Atorvastatin Calcium 20 MG TAB PO SCH (20:33)
[2022-06-17] MEDS: Vancomycin 1 GM in Premix Bag 1 BAG IVPB SCH ×2 (01:04→14:19)
[2022-06-17 06:59] LABS: #Basophils 0.1 thou/uL (0.0-0.2); #Eosinphils 0.6 thou/uL (0.0-0.7); #Lymphocytes 0.8 thou/uL (1.20-3.40); #Neutrophils 8.3 thou/uL (1.40-6.50); %Basophils 0.7 % (0.0-1.0); %Eosinophils 5.6 % (0.0-10.0); %Lymphocytes 7.5 % (21.0-51.0); %Monocytes 9.6 % (0.0-10.0); %Neutrophils 76.7 % (42.0-75.0); Hemoglobin 10.4 g/dL (14.0-18.0); Mean Corpuscular HGB CONC 32.7 g/dL (32.0-36.0); Mean Corpuscular Hemoglobin 27.6 pg (27.0-31.0); Mean Corpuscular Volume 84.3 fl (78.0-98.0); Mean Platelet Volume 8.3 fL (7.4-10.4); Platelet Count 236 10x3/uL (130-400); RBC Distribution Width 13.4 % (11.5-14.5); Red Blood Cell (RBC) Count 3.78 mill/uL (4.70-6.10); White Blood Cell (WBC) Count 10.8 10x3/uL (4.8-10.8)
[2022-06-17 07:17] LABS: Anion Gap 14 mmol/L (10-20); BUN (Urea Nitrogen) 14 mg/dL (8.4-25.7); Calc. Creatinine Clearance 108 mL/min (70-130); Calcium 9.1 mg/dL (7.8-10.44); Carbon Dioxide 21 mmol/L (22-29); Chloride 103 mmol/L (98-107); Estimated GFR 103; Glucose 121 mg/dL (70-105); Potassium 3.7 mmol/L (3.5-5.1); Sodium 134 mmol/L (136-145)
[2022-06-17] MEDS: NIFEdipine XL 60 MG TAB PO SCH (09:06)
[2022-06-17] MEDS: Enoxaparin Sodium 40 MG/0.4 ML SYRINGE SC SCH (09:07)
[2022-06-17] MEDS: Carvedilol 6.25 MG TAB PO SCH ×2 (09:07→16:51)
[2022-06-17] MEDS: hydrALAZINE 25 MG TAB PO SCH ×4 (09:07→21:56)
[2022-06-17] MEDS: Aspirin 81 mg Enteric Coated Tablet PO SCH (09:07)
[2022-06-17] MEDS: Famotidine 20 MG TAB PO SCH ×2 (09:07→21:56)
[2022-06-17] MEDS: Losartan 25 MG TAB PO SCH (09:07)
[2022-06-17] MEDS: metFORMIN XR 500 MG TAB PO SCH ×2 (09:07→21:56)
[2022-06-17] MEDS: HYDROcodone/Acetaminophen 5/325 mg Tablet PO PRN (09:53)
[2022-06-17] MEDS ORDERED: Morphine 4 MG/ML VIAL SLOW IVP SCH (12:30)
[2022-06-17] MEDS: cefTRIAXone\\ROCEPHIN 1 GM in Sodium Chloride 0.9% 100 ML IVPB SCH (16:50)
[2022-06-17] MEDS: Atorvastatin Calcium 20 MG TAB PO SCH (21:56)
[2022-06-18 00:28] LABS: Vancomycin, Trough 23.5 ug/mL
[2022-06-18] MEDS: Vancomycin 1 GM in Premix Bag 1 BAG IVPB SCH (01:03)
[2022-06-18 06:22] LABS: #Eosinphils 0.5 thou/uL (0.0-0.7); #Lymphocytes 0.7 thou/uL (1.20-3.40); #Neutrophils 9.6 thou/uL (1.40-6.50); %Basophils 0.3 % (0.0-1.0); %Eosinophils 4.5 % (0.0-10.0); %Monocytes 8.5 % (0.0-10.0); %Neutrophils 80.7 % (42.0-75.0); Mean Corpuscular HGB CONC 33.2 g/dL (32.0-36.0); Mean Corpuscular Hemoglobin 28.1 pg (27.0-31.0); Mean Corpuscular Volume 84.6 fl (78.0-98.0); Mean Platelet Volume 8.2 fL (7.4-10.4); Platelet Count 236 10x3/uL (130-400); RBC Distribution Width 13.3 % (11.5-14.5); Red Blood Cell (RBC) Count 3.56 mill/uL (4.70-6.10); White Blood Cell (WBC) Count 11.9 10x3/uL (4.8-10.8)
[2022-06-18 06:43] LABS: Anion Gap 11 mmol/L (10-20); BUN (Urea Nitrogen) 15 mg/dL (8.4-25.7); Calc. Creatinine Clearance 99 mL/min (70-130); Calcium 8.9 mg/dL (7.8-10.44); Carbon Dioxide 21 mmol/L (22-29); Chloride 104 mmol/L (98-107); Estimated GFR 98; Glucose 130 mg/dL (70-105); Potassium 3.9 mmol/L (3.5-5.1); Sodium 132 mmol/L (136-145)
[2022-06-18] MEDS: hydrALAZINE 25 MG TAB PO SCH ×4 (08:58→19:47)
[2022-06-18] MEDS: Enoxaparin Sodium 40 MG/0.4 ML SYRINGE SC SCH (08:58)
[2022-06-18] MEDS: Losartan 25 MG TAB PO SCH (08:58)
[2022-06-18] MEDS: Aspirin 81 mg Enteric Coated Tablet PO SCH (08:58)
[2022-06-18] MEDS: Carvedilol 6.25 MG TAB PO SCH ×2 (08:58→19:51)
[2022-06-18] MEDS: metFORMIN XR 500 MG TAB PO SCH ×2 (08:58→19:50)
[2022-06-18] MEDS: NIFEdipine XL 60 MG TAB PO SCH (08:58)
[2022-06-18] MEDS: Famotidine 20 MG TAB PO SCH ×2 (08:58→19:47)
[2022-06-18] MEDS: HYDROcodone/Acetaminophen 5/325 mg Tablet PO PRN ×2 (11:00→22:43)
[2022-06-18] MEDS: traMADol HCl 50 MG TAB PO PRN (12:45)
[2022-06-18] MEDS: cefTRIAXone\\ROCEPHIN 1 GM in Sodium Chloride 0.9% 100 ML IVPB SCH (14:31)
[2022-06-18] MEDS: Vancomycin HCl 750 MG in Sodium Chloride 0.9% 250 ML 250 ML IVPB SCH (16:47)
[2022-06-18] MEDS: Atorvastatin Calcium 20 MG TAB PO SCH (19:47)
[2022-06-19] MEDS: Vancomycin HCl 750 MG in Sodium Chloride 0.9% 250 ML 250 ML IVPB SCH (04:25)
[2022-06-19] MEDS: NIFEdipine XL 60 MG TAB PO SCH (08:35)
[2022-06-19] MEDS: Carvedilol 6.25 MG TAB PO SCH ×2 (08:35→17:43)
[2022-06-19] MEDS: Famotidine 20 MG TAB PO SCH ×2 (08:35→20:06)
[2022-06-19] MEDS: Enoxaparin Sodium 40 MG/0.4 ML SYRINGE SC SCH (08:35)
[2022-06-19] MEDS: hydrALAZINE 25 MG TAB PO SCH ×4 (08:35→20:06)
[2022-06-19] MEDS: Losartan 25 MG TAB PO SCH (08:35)
[2022-06-19] MEDS: Aspirin 81 mg Enteric Coated Tablet PO SCH (08:35)
[2022-06-19] MEDS: HYDROcodone/Acetaminophen 5/325 mg Tablet PO PRN ×2 (09:18→20:07)
[2022-06-19] MEDS: metFORMIN XR 500 MG TAB PO SCH ×2 (09:18→20:07)
[2022-06-19] MEDS ORDERED: Lidocaine 4% Topical Sol 50 ML BOT TOP SCH (09:45)
[2022-06-19] MEDS ORDERED: Morphine 2 MG/ML VIAL SLOW IVP PRN (11:00)
[2022-06-19] MEDS: cefTRIAXone\\ROCEPHIN 1 GM in Sodium Chloride 0.9% 100 ML IVPB SCH (14:03)
[2022-06-19 15:39] LABS: HIV (1/2) Antibody/Antigen Non-Reactive (NonReactive); HIV 1/2 INDEX 0.26 S/CO (<1.00)
[2022-06-19 18:38] LABS: Syphilis Antibody Nonreactive (Nonreactive); Syphilis Antibody Index 0.08 S/CO (<1.00 Non-Reactive)
[2022-06-19] MEDS: Atorvastatin Calcium 20 MG TAB PO SCH (20:06)
[2022-06-20] MEDS: HYDROcodone/Acetaminophen 5/325 mg Tablet PO PRN ×4 (00:10→21:56)
[2022-06-20 04:09] LABS: Vancomycin, Trough 7.7 ug/mL
[2022-06-20] MEDS: Famotidine 20 MG TAB PO SCH ×2 (08:54→21:56)
[2022-06-20] MEDS: Carvedilol 6.25 MG TAB PO SCH ×2 (08:54→15:47)
[2022-06-20] MEDS: hydrALAZINE 25 MG TAB PO SCH ×4 (08:54→21:56)
[2022-06-20] MEDS: Losartan 25 MG TAB PO SCH (08:54)
[2022-06-20] MEDS: Aspirin 81 mg Enteric Coated Tablet PO SCH (08:55)
[2022-06-20] MEDS: Ondansetron ODT 4 MG TAB PO PRN ×2 (08:55→15:47)
[2022-06-20] MEDS: NIFEdipine XL 60 MG TAB PO SCH (08:55)
[2022-06-20] MEDS: Enoxaparin Sodium 40 MG/0.4 ML SYRINGE SC SCH (08:57)
[2022-06-20] MEDS: metFORMIN XR 500 MG TAB PO SCH ×2 (10:40→21:55)
[2022-06-20] MEDS: Atorvastatin Calcium 20 MG TAB PO SCH (21:56)
[2022-06-21] MEDS: HYDROcodone/Acetaminophen 5/325 mg Tablet PO PRN ×2 (06:31→18:22)
[2022-06-21 06:51] LABS: #Basophils 0.1 thou/uL (0.0-0.2); #Eosinphils 0.6 thou/uL (0.0-0.7); #Lymphocytes 1.1 thou/uL (1.20-3.40); #Monocytes 0.9 thou/uL (0.11-0.59); %Basophils 0.8 % (0.0-1.0); %Eosinophils 4.7 % (0.0-10.0); %Lymphocytes 8.5 % (21.0-51.0); %Monocytes 7.2 % (0.0-10.0); %Neutrophils 78.8 % (42.0-75.0); Mean Corpuscular HGB CONC 33.9 g/dL (32.0-36.0); Mean Corpuscular Hemoglobin 28.4 pg (27.0-31.0); Mean Corpuscular Volume 83.8 fl (78.0-98.0); Mean Platelet Volume 7.8 fL (7.4-10.4); Platelet Count 287 10x3/uL (130-400); RBC Distribution Width 13.2 % (11.5-14.5); Red Blood Cell (RBC) Count 3.54 mill/uL (4.70-6.10); White Blood Cell (WBC) Count 12.7 10x3/uL (4.8-10.8)
[2022-06-21 07:12] LABS: Anion Gap 15 mmol/L (10-20); BUN (Urea Nitrogen) 23 mg/dL (8.4-25.7); Calc. Creatinine Clearance 84 mL/min (70-130); Calcium 8.9 mg/dL (7.8-10.44); Carbon Dioxide 20 mmol/L (22-29); Chloride 102 mmol/L (98-107); Estimated GFR 81; Glucose 75 mg/dL (70-105); Potassium 3.9 mmol/L (3.5-5.1); Sodium 133 mmol/L (136-145)
[2022-06-21] MEDS: Carvedilol 6.25 MG TAB PO SCH ×2 (08:10→16:52)
[2022-06-21] MEDS: Aspirin 81 mg Enteric Coated Tablet PO SCH (08:11)
[2022-06-21] MEDS: traMADol HCl 50 MG TAB PO PRN (08:11)
[2022-06-21] MEDS: Losartan 25 MG TAB PO SCH (08:11)
[2022-06-21] MEDS: Famotidine 20 MG TAB PO SCH ×2 (08:12→21:56)
[2022-06-21] MEDS: NIFEdipine XL 60 MG TAB PO SCH (08:12)
[2022-06-21] MEDS: hydrALAZINE 25 MG TAB PO SCH ×4 (08:12→21:56)
[2022-06-21] MEDS: Enoxaparin Sodium 40 MG/0.4 ML SYRINGE SC SCH (08:12)
[2022-06-21] MEDS: metFORMIN XR 500 MG TAB PO SCH ×2 (13:53→21:56)
[2022-06-21] MEDS: Ondansetron ODT 4 MG TAB PO PRN (16:56)
[2022-06-21] MEDS: Atorvastatin Calcium 20 MG TAB PO SCH (21:56)
[2022-06-22 06:53] LABS: Anion Gap 14 mmol/L (10-20); BUN (Urea Nitrogen) 20 mg/dL (8.4-25.7); Calc. Creatinine Clearance 99 mL/min (70-130); Carbon Dioxide 21 mmol/L (22-29); Chloride 103 mmol/L (98-107); Estimated GFR 98; Glucose 73 mg/dL (70-105); Potassium 4.1 mmol/L (3.5-5.1); Sodium 134 mmol/L (136-145)
[2022-06-22 07:17] LABS: #Basophils 0.1 thou/uL (0.0-0.2); #Eosinphils 0.6 thou/uL (0.0-0.7); #Monocytes 0.8 thou/uL (0.11-0.59); #Neutrophils 9.6 thou/uL (1.40-6.50); %Basophils 0.8 % (0.0-1.0); %Eosinophils 5.1 % (0.0-10.0); %Lymphocytes 8.3 % (21.0-51.0); %Monocytes 6.6 % (0.0-10.0); %Neutrophils 79.3 % (42.0-75.0); Hemoglobin 10.6 g/dL (14.0-18.0); Mean Corpuscular HGB CONC 33.4 g/dL (32.0-36.0); Mean Corpuscular Hemoglobin 28.2 pg (27.0-31.0); Mean Corpuscular Volume 84.3 fl (78.0-98.0); Mean Platelet Volume 7.9 fL (7.4-10.4); Platelet Count 291 10x3/uL (130-400); RBC Distribution Width 13.3 % (11.5-14.5); Red Blood Cell (RBC) Count 3.77 mill/uL (4.70-6.10); White Blood Cell (WBC) Count 12.1 10x3/uL (4.8-10.8)
[2022-06-22] MEDS: Losartan 25 MG TAB PO SCH (08:46)
[2022-06-22] MEDS: hydrALAZINE 25 MG TAB PO SCH ×4 (08:47→20:08)
[2022-06-22] MEDS: Famotidine 20 MG TAB PO SCH ×2 (08:47→20:08)
[2022-06-22] MEDS: metFORMIN XR 500 MG TAB PO SCH ×2 (08:47→20:30)
[2022-06-22] MEDS: NIFEdipine XL 60 MG TAB PO SCH (08:47)
[2022-06-22] MEDS: Aspirin 81 mg Enteric Coated Tablet PO SCH (08:47)
[2022-06-22] MEDS: Carvedilol 6.25 MG TAB PO SCH ×2 (08:47→15:24)
[2022-06-22] MEDS: Enoxaparin Sodium 40 MG/0.4 ML SYRINGE SC SCH (08:48)
[2022-06-22] MEDS: HYDROcodone/Acetaminophen 5/325 mg Tablet PO PRN ×2 (08:48→20:09)
[2022-06-22] MEDS: traMADol HCl 50 MG TAB PO PRN (12:20)
[2022-06-22] MEDS: Morphine 4 MG/ML VIAL SLOW IVP PRN (14:18)
[2022-06-22] MEDS: Atorvastatin Calcium 20 MG TAB PO SCH (20:08)
[2022-06-22] MEDS: Senokot S 8.6-50 MG TAB PO PRN (20:14)
[2022-06-23] MEDS: Carvedilol 6.25 MG TAB PO SCH ×2 (05:50→18:07)
[2022-06-23 07:40] LABS: #Basophils 0.1 thou/uL (0.0-0.2); #Eosinphils 0.5 thou/uL (0.0-0.7); #Lymphocytes 0.7 thou/uL (1.20-3.40); #Monocytes 0.6 thou/uL (0.11-0.59); #Neutrophils 8.3 thou/uL (1.40-6.50); %Basophils 0.6 % (0.0-1.0); %Eosinophils 4.6 % (0.0-10.0); %Lymphocytes 7.2 % (21.0-51.0); %Monocytes 5.7 % (0.0-10.0); %Neutrophils 81.9 % (42.0-75.0); Mean Corpuscular HGB CONC 33.3 g/dL (32.0-36.0); Mean Corpuscular Hemoglobin 27.8 pg (27.0-31.0); Mean Corpuscular Volume 83.4 fl (78.0-98.0); Mean Platelet Volume 7.4 fL (7.4-10.4); Platelet Count 339 10x3/uL (130-400); RBC Distribution Width 13.4 % (11.5-14.5); Red Blood Cell (RBC) Count 3.96 mill/uL (4.70-6.10); White Blood Cell (WBC) Count 10.1 10x3/uL (4.8-10.8)
[2022-06-23 08:06] LABS: Anion Gap 13 mmol/L (10-20); BUN (Urea Nitrogen) 17 mg/dL (8.4-25.7); Calc. Creatinine Clearance 101 mL/min (70-130); Carbon Dioxide 24 mmol/L (22-29); Chloride 103 mmol/L (98-107); Estimated GFR 101; Glucose 129 mg/dL (70-105); Potassium 3.8 mmol/L (3.5-5.1); Sodium 136 mmol/L (136-145)
[2022-06-23] MEDS: Morphine 4 MG/ML VIAL SLOW IVP PRN (08:27)
[2022-06-23] MEDS ORDERED: Iopamidol 370 76% 50 ML VIAL FS ONE (08:45)
[2022-06-23] MEDS: Aspirin 81 mg Enteric Coated Tablet PO SCH (09:14)
[2022-06-23] MEDS: Enoxaparin Sodium 40 MG/0.4 ML SYRINGE SC SCH (09:14)
[2022-06-23] MEDS: Famotidine 20 MG TAB PO SCH ×2 (09:14→20:42)
[2022-06-23] MEDS: metFORMIN XR 500 MG TAB PO SCH (09:14)
[2022-06-23] MEDS: Losartan 25 MG TAB PO SCH (09:24)
[2022-06-23] MEDS: NIFEdipine XL 60 MG TAB PO SCH (09:25)
[2022-06-23] MEDS: hydrALAZINE 25 MG TAB PO SCH ×4 (09:25→20:42)
[2022-06-23] MEDS ORDERED: Heparin 10,000 UNITS/ 10 ML VIAL ONE (11:35)
[2022-06-23] MEDS ORDERED: Lidocaine 1% (PF) 30 ML VIAL ONE (11:35)
[2022-06-23] MEDS ORDERED: Midazolam HCl 2 mg/2 ml Vial ONE (11:59)
[2022-06-23] MEDS ORDERED: FENTANYL 50 MCG/ML 1 ML VIAL ONE (11:59)
[2022-06-23] MEDS: Atorvastatin Calcium 20 MG TAB PO SCH (20:42)
[2022-06-23] MEDS: Senokot S 8.6-50 MG TAB PO PRN (20:43)
[2022-06-23] MEDS: HYDROcodone/Acetaminophen 5/325 mg Tablet PO PRN (20:47)
[2022-06-24] MEDS: hydrALAZINE 25 MG TAB PO SCH ×4 (08:24→20:16)
[2022-06-24] MEDS: Famotidine 20 MG TAB PO SCH ×2 (08:24→20:13)
[2022-06-24] MEDS: Enoxaparin Sodium 40 MG/0.4 ML SYRINGE SC SCH (08:24)
[2022-06-24] MEDS: Losartan 25 MG TAB PO SCH (08:24)
[2022-06-24] MEDS: Senokot S 8.6-50 MG TAB PO PRN ×2 (08:25→20:13)
[2022-06-24] MEDS: Carvedilol 6.25 MG TAB PO SCH ×2 (08:25→17:13)
[2022-06-24] MEDS: NIFEdipine XL 60 MG TAB PO SCH (08:25)
[2022-06-24] MEDS: Aspirin 81 mg Enteric Coated Tablet PO SCH (08:25)
[2022-06-24] MEDS: Morphine 4 MG/ML VIAL SLOW IVP PRN (08:50)
[2022-06-24 13:19] LABS: ANA Symphony (Qualitative) Negative (Negative); ANA Symphony (Quantitative) 0.4 Ratio (< 0.7 Negative); dsDNA IgG Antibody 0.8 IU/mL (<10 Negative)
[2022-06-24] MEDS: HYDROcodone/Acetaminophen 5/325 mg Tablet PO PRN ×2 (13:20→20:16)
[2022-06-24] MEDS ORDERED: Lidocaine 4% Topical Sol 50 ML BOT TOP SCH (17:30)
[2022-06-24] MEDS: Atorvastatin Calcium 20 MG TAB PO SCH (20:13)
[2022-06-25] MEDS: Senokot S 8.6-50 MG TAB PO PRN (05:17)
[2022-06-25] MEDS: HYDROcodone/Acetaminophen 5/325 mg Tablet PO PRN (05:17)
[2022-06-25 07:09] LABS: #Basophils 0.1 thou/uL (0.0-0.2); #Eosinphils 0.4 thou/uL (0.0-0.7); #Lymphocytes 0.9 thou/uL (1.20-3.40); #Monocytes 0.7 thou/uL (0.11-0.59); #Neutrophils 8.8 thou/uL (1.40-6.50); %Basophils 0.7 % (0.0-1.0); %Lymphocytes 8.4 % (21.0-51.0); %Monocytes 6.2 % (0.0-10.0); %Neutrophils 80.7 % (42.0-75.0); Hemoglobin 11.2 g/dL (14.0-18.0); Mean Corpuscular HGB CONC 33.6 g/dL (32.0-36.0); Mean Corpuscular Hemoglobin 28.4 pg (27.0-31.0); Mean Corpuscular Volume 84.6 fl (78.0-98.0); Mean Platelet Volume 7.5 fL (7.4-10.4); Platelet Count 374 10x3/uL (130-400); RBC Distribution Width 13.4 % (11.5-14.5); Red Blood Cell (RBC) Count 3.93 mill/uL (4.70-6.10)
[2022-06-25 07:11] LABS: Hemoglobin A1c 8.8 % (4.0-6.0)
[2022-06-25 07:39] LABS: Anion Gap 14 mmol/L (10-20); BUN (Urea Nitrogen) 17 mg/dL (8.4-25.7); Calc. Creatinine Clearance 105 mL/min (70-130); Calcium 9.4 mg/dL (7.8-10.44); Carbon Dioxide 22 mmol/L (22-29); Chloride 104 mmol/L (98-107); Estimated GFR 102; Glucose 109 mg/dL (70-105); Sodium 136 mmol/L (136-145)
[2022-06-25] MEDS: Carvedilol 6.25 MG TAB PO SCH (08:24)
[2022-06-25] MEDS: Losartan 25 MG TAB PO SCH (08:24)
[2022-06-25] MEDS: Aspirin 81 mg Enteric Coated Tablet PO SCH (08:24)
[2022-06-25] MEDS: Famotidine 20 MG TAB PO SCH (08:25)
[2022-06-25] MEDS: hydrALAZINE 25 MG TAB PO SCH ×2 (08:25→13:19)
[2022-06-25] MEDS: Enoxaparin Sodium 40 MG/0.4 ML SYRINGE SC SCH (08:25)
[2022-06-25] MEDS: NIFEdipine XL 60 MG TAB PO SCH (08:25)
[2022-06-25 09:07] VITALS: BP 159/71; TEMP 98
[2022-06-25] MEDS: traMADol HCl 50 MG TAB PO PRN (13:19)
[2022-06-25 15:15] LABS: Cytoplasmic (C-ANCA) <1:20 titer (Neg:<1:20); Perinuclear (P-ANCA) <1:20 titer (Neg:<1:20)
== END 2022-06-25 15:44 | disposition home or self-care (01) | DRG 264 ==
LOC: ERS 09:05 → T4-A 13:35
PROVIDERS: ADMIT Hospitalist; ATTEND Hospitalist
PROC: 0JBQ0ZZ Excision of Right Foot Subcutaneous Tissue and Fascia, Open Approach (ICD-10-PCS; principal; 2022-06-12)
PROC: 0HBKXZX Excision of Right Lower Leg Skin, External Approach, Diagnostic (ICD-10-PCS; 2022-06-12)
PROC: B41D1ZZ Fluoroscopy of Aorta and Bilateral Lower Extremity Arteries using Low Osmolar Contrast (ICD-10-PCS; 2022-06-23)
DX: E11.52 Type 2 diabetes mellitus with diabetic peripheral angiopathy with gangrene (principal); Z20.822 Contact with and (suspected) exposure to COVID-19; L97.219 Non-pressure chronic ulcer of right calf with unspecified severity; I70.261 Atherosclerosis of native arteries of extremities with gangrene, right leg; E11.622 Type 2 diabetes mellitus with other skin ulcer; E78.5 Hyperlipidemia, unspecified; E11.65 Type 2 diabetes mellitus with hyperglycemia; Z91.011 Allergy to milk products; Z90.49 Acquired absence of other specified parts of digestive tract; Z83.3 Family history of diabetes mellitus; Z82.49 Family history of ischemic heart disease and other diseases of the circulatory system; Z81.2 Family history of tobacco abuse and dependence; Z79.899 Other long term (current) drug therapy; Z79.84 Long term (current) use of oral hypoglycemic drugs
CPT/HCPCS: 36245; 36246; 36415; 36416; 70450; 71045; 75710; 75736; 76536; 80048; 80053; 80202; 83036; 83605; 85025; 85652; 86037; 86038; 86140; 86225; 86780; 87040; 87070; 87081; 87205; 87389; 87811; 88305; 93923; 93970; 96365; 96375; 97139; C1760; C1769; J0692; J0696; J1644; J1650; J1815; J2001; J2250; J2270; J3010; J3370; J3370-JW; J3490; J7050; Q0162; Q9967; U0002

== ENCOUNTER 2022-07-24 14:54 | Emergency (ER) | payer OTHER | END 2022-07-24 19:03 | LOC: ERS 14:54 | DX: Z53.21 Procedure and treatment not carried out due to patient leaving prior to being seen by health care provider (principal) ==

== ENCOUNTER 2022-08-15 09:58 | Inpatient (IN) | payer OTHER ==
[2022-08-15] MEDS ORDERED: Morphine 4 MG/ML VIAL ONE (10:50)
[2022-08-15] MEDS ORDERED: Acetaminophen 500 MG TAB ONE (10:52)
[2022-08-15 10:54] LABS: Prothrombin Time 13.5 sec (12.0-14.7)
[2022-08-15 10:55] LABS: PTT 41.5 sec (22.9-36.1)
[2022-08-15 10:56] LABS: ALT (SGPT) 16 U/L (8-55); AST (SGOT) 15 U/L (5-34); Albumin 3.6 g/dL (3.5-5.0); Alkaline Phosphatase 284 U/L (40-110); Anion Gap 17 mmol/L (10-20); BUN (Urea Nitrogen) 14 mg/dL (8.4-25.7); Bilirubin, Total 0.8 mg/dL (0.2-1.2); Calc. Creatinine Clearance 0 mL/min (70-130); Calcium 10.3 mg/dL (7.8-10.44); Carbon Dioxide 21 mmol/L (22-29); Chloride 101 mmol/L (98-107); Estimated GFR 102; Globulin 4.7 g/dL (2.4-3.5); Glucose 177 mg/dL (70-105); Potassium 4.1 mmol/L (3.5-5.1); Protein, Total 8.3 g/dL (6.0-8.3); Sodium 135 mmol/L (136-145)
[2022-08-15 10:57] LABS: #Basophils 0.1 thou/uL (0.0-0.2); #Eosinphils 0.5 thou/uL (0.0-0.7); #Monocytes 0.8 thou/uL (0.11-0.59); #Neutrophils 12.5 thou/uL (1.40-6.50); %Basophils 0.4 % (0.0-1.0); %Eosinophils 3.3 % (0.0-10.0); %Monocytes 5.1 % (0.0-10.0); %Neutrophils 84.2 % (42.0-75.0); Hemoglobin 12.7 g/dL (14.0-18.0); Mean Corpuscular HGB CONC 32.9 g/dL (32.0-36.0); Mean Corpuscular Hemoglobin 27.6 pg (27.0-31.0); Mean Corpuscular Volume 83.9 fl (78.0-98.0); Mean Platelet Volume 8.3 fL (7.4-10.4); Platelet Count 379 10x3/uL (130-400); RBC Distribution Width 13.6 % (11.5-14.5); Red Blood Cell (RBC) Count 4.59 mill/uL (4.70-6.10); White Blood Cell (WBC) Count 14.9 10x3/uL (4.8-10.8)
[2022-08-15] MEDS ORDERED: Vancomycin 1.5 GRAM/300 ML BAG 1.5 GM in Premix Bag 1 BAG IVPB SCH (11:00)
[2022-08-15 13:31] LABS: Lactic Acid 1.1 mmol/L (0.5-2.2)
[2022-08-15] MEDS ORDERED: Senokot S 8.6-50 MG TAB PO PRN (14:08)
[2022-08-15] MEDS ORDERED: Bisacodyl 10 MG SUPP PR PRN (14:08)
[2022-08-15] MEDS ORDERED: Dextrose 50% Abboject 50 ML SYRINGE SLOW IVP PRN (14:08)
[2022-08-15] MEDS ORDERED: Dextrose 5% in Water 1,000 ML IV PRN (14:08)
[2022-08-15] MEDS ORDERED: Bisacodyl 5 MG TAB PO PRN (14:08)
[2022-08-15] MEDS ORDERED: Labetalol HCl 100 MG/20 ML VIAL SLOW IVP PRN (14:21)
[2022-08-15] MEDS ORDERED: Hydrochlorothiazide 25 MG TAB PO SCH (14:30)
[2022-08-15] MEDS ORDERED: Losartan 25 MG TAB PO SCH (14:30)
[2022-08-15] MEDS ORDERED: NIFEdipine XL 90 MG TAB PO SCH (14:30)
[2022-08-15] MEDS ORDERED: cefTRIAXone\\ROCEPHIN 2 GM in Sodium Chloride 0.9% 100 ML IVPB SCH (16:00)
[2022-08-15] MEDS: Acetaminophen 500 MG TAB PO SCH ×2 (16:29→20:12)
[2022-08-15 17:29] VITALS: BMI 30.8
[2022-08-15] MEDS ORDERED: Meropenem 1 GM in Sodium Chloride 0.9% 100 ML IVPB SCH (20:00)
[2022-08-15] MEDS: Famotidine 20 MG TAB PO SCH (20:13)
[2022-08-15] MEDS: HumaLOG 300 UNITS/3 ML VIAL SC PRN (20:15)
[2022-08-15] MEDS: VANCOMYCIN 1.25 GM/250 ML BAG 1.25 GM in Premix Bag 1 BAG IVPB SCH (20:55)
[2022-08-15] MEDS ORDERED: Meropenem 500 MG in Sodium Chloride 0.9% 100 ML IVPB SCH (22:00)
[2022-08-15] MEDS: oxyCODONE 5 MG TAB PO PRN (22:45)
[2022-08-16] MEDS: Meropenem 1 GM in Sodium Chloride 0.9% 100 ML IVPB SCH ×3 (04:02→20:17)
[2022-08-16] MEDS: oxyCODONE 5 MG TAB PO PRN ×2 (04:07→12:42)
[2022-08-16] MEDS: HumaLOG 300 UNITS/3 ML VIAL SC PRN ×2 (05:18→20:20)
[2022-08-16] MEDS: NIFEdipine XL 90 MG TAB PO SCH (08:11)
[2022-08-16] MEDS: Losartan 25 MG TAB PO SCH (08:11)
[2022-08-16] MEDS: Famotidine 20 MG TAB PO SCH ×2 (08:11→20:18)
[2022-08-16] MEDS: Hydrochlorothiazide 25 MG TAB PO SCH (08:12)
[2022-08-16] MEDS: Acetaminophen 500 MG TAB PO SCH ×3 (08:12→20:17)
[2022-08-16] MEDS: VANCOMYCIN 1.25 GM/250 ML BAG 1.25 GM in Premix Bag 1 BAG IVPB SCH ×2 (08:14→21:11)
[2022-08-16 08:44] LABS: #Basophils 0.1 thou/uL (0.0-0.2); #Eosinphils 0.4 thou/uL (0.0-0.7); #Lymphocytes 0.6 thou/uL (1.20-3.40); #Monocytes 0.6 thou/uL (0.11-0.59); #Neutrophils 12.6 thou/uL (1.40-6.50); %Basophils 0.5 % (0.0-1.0); %Eosinophils 2.9 % (0.0-10.0); %Lymphocytes 3.9 % (21.0-51.0); %Monocytes 4.5 % (0.0-10.0); %Neutrophils 88.3 % (42.0-75.0); Hemoglobin 10.6 g/dL (14.0-18.0); Mean Corpuscular HGB CONC 31.9 g/dL (32.0-36.0); Mean Corpuscular Hemoglobin 27.2 pg (27.0-31.0); Mean Corpuscular Volume 85.2 fl (78.0-98.0); Mean Platelet Volume 8.2 fL (7.4-10.4); Platelet Count 367 10x3/uL (130-400); RBC Distribution Width 13.6 % (11.5-14.5); Red Blood Cell (RBC) Count 3.89 mill/uL (4.70-6.10); White Blood Cell (WBC) Count 14.3 10x3/uL (4.8-10.8)
[2022-08-16 09:04] LABS: Anion Gap 18 mmol/L (10-20); BUN (Urea Nitrogen) 17 mg/dL (8.4-25.7); CRP (Inflammatory) 23.35 mg/dL (= or < 0.5); Calc. Creatinine Clearance 78 mL/min (70-130); Calcium 8.7 mg/dL (7.8-10.44); Carbon Dioxide 17 mmol/L (22-29); Chloride 103 mmol/L (98-107); Estimated GFR 75; Glucose 140 mg/dL (70-105); Sodium 134 mmol/L (136-145)
[2022-08-16] MEDS ORDERED: Magnevist 469MG/ML 20 ML VIAL ONE (11:05)
[2022-08-16 20:56] LABS: Vancomycin, Trough 27.5 ug/mL
[2022-08-16] MEDS ORDERED: VANCOMYCIN 750 MG/250 ML BAG 750 MG in Sodium Chloride 0.9% 250 ML 250 ML IVPB SCH (21:15)
[2022-08-17] MEDS: Meropenem 1 GM in Sodium Chloride 0.9% 100 ML IVPB SCH ×3 (04:09→22:15)
[2022-08-17] MEDS: oxyCODONE 5 MG TAB PO PRN (04:51)
[2022-08-17 07:15] LABS: #Basophils 0.1 thou/uL (0.0-0.2); #Eosinphils 0.9 thou/uL (0.0-0.7); #Lymphocytes 0.9 thou/uL (1.20-3.40); #Neutrophils 9.3 thou/uL (1.40-6.50); %Basophils 0.7 % (0.0-1.0); %Eosinophils 7.5 % (0.0-10.0); %Lymphocytes 7.3 % (21.0-51.0); %Monocytes 8.3 % (0.0-10.0); %Neutrophils 76.1 % (42.0-75.0); Hemoglobin 9.3 g/dL (14.0-18.0); Mean Corpuscular HGB CONC 31.8 g/dL (32.0-36.0); Mean Corpuscular Hemoglobin 26.9 pg (27.0-31.0); Mean Corpuscular Volume 84.6 fl (78.0-98.0); Mean Platelet Volume 7.6 fL (7.4-10.4); Platelet Count 356 10x3/uL (130-400); RBC Distribution Width 13.6 % (11.5-14.5); Red Blood Cell (RBC) Count 3.45 mill/uL (4.70-6.10); White Blood Cell (WBC) Count 12.3 10x3/uL (4.8-10.8)
[2022-08-17 07:31] LABS: Anion Gap 12 mmol/L (10-20); BUN (Urea Nitrogen) 17 mg/dL (8.4-25.7); Calc. Creatinine Clearance 89 mL/min (70-130); Carbon Dioxide 21 mmol/L (22-29); Chloride 103 mmol/L (98-107); Estimated GFR 88; Glucose 122 mg/dL (70-105); Potassium 3.7 mmol/L (3.5-5.1); Sodium 132 mmol/L (136-145)
[2022-08-17 08:20] LABS: Vancomycin, Random 15.5 ug/mL (See Comment)
[2022-08-17] MEDS: Losartan 25 MG TAB PO SCH (09:13)
[2022-08-17] MEDS: Famotidine 20 MG TAB PO SCH ×2 (09:14→21:14)
[2022-08-17] MEDS: Hydrochlorothiazide 25 MG TAB PO SCH (09:14)
[2022-08-17] MEDS: Acetaminophen 500 MG TAB PO SCH ×3 (09:14→21:12)
[2022-08-17] MEDS: NIFEdipine XL 90 MG TAB PO SCH (09:17)
[2022-08-17] MEDS: Vancomycin HCl 750 MG in Sodium Chloride 0.9% 250 ML 250 ML IVPB SCH ×2 (09:33→21:12)
[2022-08-17] MEDS: Morphine 4 MG/ML VIAL SLOW IVP PRN (11:56)
[2022-08-18] MEDS: Meropenem 1 GM in Sodium Chloride 0.9% 100 ML IVPB SCH ×3 (04:41→20:04)
[2022-08-18 07:37] LABS: Anion Gap 14 mmol/L (10-20); BUN (Urea Nitrogen) 16 mg/dL (8.4-25.7); Calc. Creatinine Clearance 110 mL/min (70-130); Calcium 9.6 mg/dL (7.8-10.44); Carbon Dioxide 20 mmol/L (22-29); Chloride 103 mmol/L (98-107); Estimated GFR 103; Glucose 134 mg/dL (70-105); Potassium 3.6 mmol/L (3.5-5.1); Sodium 133 mmol/L (136-145)
[2022-08-18 07:48] LABS: #Basophils 0.1 thou/uL (0.0-0.2); #Eosinphils 0.7 thou/uL (0.0-0.7); #Lymphocytes 0.9 thou/uL (1.20-3.40); #Monocytes 0.9 thou/uL (0.11-0.59); #Neutrophils 9.5 thou/uL (1.40-6.50); %Basophils 0.4 % (0.0-1.0); %Eosinophils 5.9 % (0.0-10.0); %Lymphocytes 7.3 % (21.0-51.0); %Monocytes 7.3 % (0.0-10.0); %Neutrophils 79.1 % (42.0-75.0); Hemoglobin 9.9 g/dL (14.0-18.0); Mean Corpuscular HGB CONC 31.7 g/dL (32.0-36.0); Mean Corpuscular Hemoglobin 26.7 pg (27.0-31.0); Mean Corpuscular Volume 84.2 fl (78.0-98.0); Mean Platelet Volume 7.8 fL (7.4-10.4); Platelet Count 379 10x3/uL (130-400); RBC Distribution Width 13.5 % (11.5-14.5); Red Blood Cell (RBC) Count 3.72 mill/uL (4.70-6.10)
[2022-08-18] MEDS: Losartan 25 MG TAB PO SCH (09:48)
[2022-08-18] MEDS: Hydrochlorothiazide 25 MG TAB PO SCH (09:48)
[2022-08-18] MEDS: Acetaminophen 500 MG TAB PO SCH ×3 (09:50→20:02)
[2022-08-18] MEDS: Famotidine 20 MG TAB PO SCH ×2 (09:51→20:01)
[2022-08-18] MEDS: NIFEdipine XL 90 MG TAB PO SCH (09:51)
[2022-08-18] MEDS: Vancomycin HCl 750 MG in Sodium Chloride 0.9% 250 ML 250 ML IVPB SCH (09:52)
[2022-08-18] MEDS: traMADol HCl 50 MG TAB PO PRN (12:42)
[2022-08-18 20:36] LABS: Vancomycin, Trough 13.5 ug/mL
[2022-08-18] MEDS: Vancomycin 1 GM in Premix Bag 1 BAG IVPB SCH (22:56)
[2022-08-19] MEDS: traMADol HCl 50 MG TAB PO PRN (01:05)
[2022-08-19] MEDS: Meropenem 1 GM in Sodium Chloride 0.9% 100 ML IVPB SCH ×3 (05:00→22:15)
[2022-08-19 06:49] LABS: #Eosinphils 0.6 thou/uL (0.0-0.7); #Lymphocytes 1.1 thou/uL (1.20-3.40); #Monocytes 1.1 thou/uL (0.11-0.59); %Basophils 0.4 % (0.0-1.0); %Monocytes 9.9 % (0.0-10.0); %Neutrophils 73.7 % (42.0-75.0); Hemoglobin 9.7 g/dL (14.0-18.0); Mean Corpuscular HGB CONC 32.8 g/dL (32.0-36.0); Mean Corpuscular Hemoglobin 27.4 pg (27.0-31.0); Mean Corpuscular Volume 83.4 fl (78.0-98.0); Mean Platelet Volume 7.4 fL (7.4-10.4); Platelet Count 365 10x3/uL (130-400); RBC Distribution Width 13.5 % (11.5-14.5); Red Blood Cell (RBC) Count 3.54 mill/uL (4.70-6.10); White Blood Cell (WBC) Count 10.8 10x3/uL (4.8-10.8)
[2022-08-19 07:13] LABS: Anion Gap 11 mmol/L (10-20); BUN (Urea Nitrogen) 18 mg/dL (8.4-25.7); Calc. Creatinine Clearance 109 mL/min (70-130); Carbon Dioxide 23 mmol/L (22-29); Chloride 102 mmol/L (98-107); Estimated GFR 103; Glucose 139 mg/dL (70-105); Potassium 3.6 mmol/L (3.5-5.1); Sodium 132 mmol/L (136-145)
[2022-08-19] MEDS: Morphine 4 MG/ML VIAL SLOW IVP PRN ×2 (09:00→22:45)
[2022-08-19] MEDS: Vancomycin 1 GM in Premix Bag 1 BAG IVPB SCH ×2 (10:10→20:59)
[2022-08-19] MEDS: NIFEdipine XL 90 MG TAB PO SCH (10:11)
[2022-08-19] MEDS: Hydrochlorothiazide 25 MG TAB PO SCH (10:11)
[2022-08-19] MEDS: Famotidine 20 MG TAB PO SCH ×2 (10:11→20:58)
[2022-08-19] MEDS: Acetaminophen 500 MG TAB PO SCH ×3 (10:12→20:58)
[2022-08-19] MEDS: Losartan 25 MG TAB PO SCH (10:12)
[2022-08-20] MEDS: Meropenem 1 GM in Sodium Chloride 0.9% 100 ML IVPB SCH ×2 (03:26→13:05)
[2022-08-20] MEDS: hydrALAZINE 20 MG/ML VIAL SLOW IVP PRN (04:07)
[2022-08-20] MEDS: Morphine 4 MG/ML VIAL SLOW IVP PRN ×2 (05:55→14:37)
[2022-08-20] MEDS: Acetaminophen 500 MG TAB PO SCH ×3 (09:16→20:55)
[2022-08-20] MEDS: Hydrochlorothiazide 25 MG TAB PO SCH (09:16)
[2022-08-20] MEDS: Losartan 25 MG TAB PO SCH (09:17)
[2022-08-20] MEDS: Famotidine 20 MG TAB PO SCH ×2 (09:17→20:56)
[2022-08-20] MEDS: NIFEdipine XL 90 MG TAB PO SCH (09:17)
[2022-08-20 09:48] LABS: #Basophils 0.1 thou/uL (0.0-0.2); #Eosinphils 0.7 thou/uL (0.0-0.7); #Lymphocytes 1.1 thou/uL (1.20-3.40); #Neutrophils 9.6 thou/uL (1.40-6.50); %Basophils 0.8 % (0.0-1.0); %Eosinophils 5.6 % (0.0-10.0); %Lymphocytes 8.9 % (21.0-51.0); %Monocytes 7.8 % (0.0-10.0); %Neutrophils 76.9 % (42.0-75.0); Hemoglobin 11.2 g/dL (14.0-18.0); Mean Corpuscular HGB CONC 32.8 g/dL (32.0-36.0); Mean Corpuscular Hemoglobin 27.3 pg (27.0-31.0); Mean Corpuscular Volume 83.2 fl (78.0-98.0); Mean Platelet Volume 7.3 fL (7.4-10.4); Platelet Count 483 10x3/uL (130-400); RBC Distribution Width 13.7 % (11.5-14.5); White Blood Cell (WBC) Count 12.5 10x3/uL (4.8-10.8)
[2022-08-20 09:54] LABS: Vancomycin, Trough 18.9 ug/mL
[2022-08-20 09:59] LABS: Anion Gap 15 mmol/L (10-20); BUN (Urea Nitrogen) 17 mg/dL (8.4-25.7); Calc. Creatinine Clearance 113 mL/min (70-130); Calcium 9.9 mg/dL (7.8-10.44); Carbon Dioxide 23 mmol/L (22-29); Chloride 100 mmol/L (98-107); Estimated GFR 104; Glucose 162 mg/dL (70-105); Potassium 3.5 mmol/L (3.5-5.1); Sodium 134 mmol/L (136-145)
[2022-08-20] MEDS: Vancomycin 1 GM in Premix Bag 1 BAG IVPB SCH (10:03)
[2022-08-20] MEDS: traMADol HCl 50 MG TAB PO PRN (17:21)
[2022-08-20] MEDS: HumaLOG 300 UNITS/3 ML VIAL SC PRN (17:21)
[2022-08-20] MEDS: cefTRIAXone\\ROCEPHIN 1 GM in Sodium Chloride 0.9% 100 ML IVPB SCH (20:56)
[2022-08-21] MEDS: Morphine 4 MG/ML VIAL SLOW IVP PRN ×4 (02:44→16:59)
[2022-08-21 06:42] LABS: #Basophils 0.1 thou/uL (0.0-0.2); #Eosinphils 0.7 thou/uL (0.0-0.7); #Lymphocytes 1.3 thou/uL (1.20-3.40); #Monocytes 0.9 thou/uL (0.11-0.59); %Basophils 0.7 % (0.0-1.0); %Lymphocytes 9.8 % (21.0-51.0); %Monocytes 6.8 % (0.0-10.0); %Neutrophils 77.7 % (42.0-75.0); Hemoglobin 11.9 g/dL (14.0-18.0); Mean Corpuscular HGB CONC 32.2 g/dL (32.0-36.0); Mean Corpuscular Hemoglobin 27.2 pg (27.0-31.0); Mean Corpuscular Volume 84.3 fl (78.0-98.0); Mean Platelet Volume 7.4 fL (7.4-10.4); Platelet Count 484 10x3/uL (130-400); RBC Distribution Width 13.8 % (11.5-14.5); Red Blood Cell (RBC) Count 4.37 mill/uL (4.70-6.10); White Blood Cell (WBC) Count 12.9 10x3/uL (4.8-10.8)
[2022-08-21 07:07] LABS: Anion Gap 17 mmol/L (10-20); BUN (Urea Nitrogen) 18 mg/dL (8.4-25.7); Calc. Creatinine Clearance 114 mL/min (70-130); Calcium 9.8 mg/dL (7.8-10.44); Carbon Dioxide 19 mmol/L (22-29); Chloride 100 mmol/L (98-107); Estimated GFR 105; Glucose 124 mg/dL (70-105); Potassium 3.8 mmol/L (3.5-5.1); Sodium 132 mmol/L (136-145)
[2022-08-21] MEDS: Acetaminophen 500 MG TAB PO SCH ×3 (08:42→20:59)
[2022-08-21] MEDS: Hydrochlorothiazide 25 MG TAB PO SCH (08:42)
[2022-08-21] MEDS: Losartan 25 MG TAB PO SCH (08:42)
[2022-08-21] MEDS: NIFEdipine XL 90 MG TAB PO SCH (08:42)
[2022-08-21] MEDS: Famotidine 20 MG TAB PO SCH ×2 (08:43→20:59)
[2022-08-21] MEDS: HumaLOG 300 UNITS/3 ML VIAL SC PRN (15:51)
[2022-08-21] MEDS: cefTRIAXone\\ROCEPHIN 1 GM in Sodium Chloride 0.9% 100 ML IVPB SCH (20:56)
[2022-08-22] MEDS: Morphine 4 MG/ML VIAL SLOW IVP PRN (02:45)
[2022-08-22] MEDS: traMADol HCl 50 MG TAB PO PRN ×2 (06:14→14:37)
[2022-08-22 08:09] LABS: #Basophils 0.1 thou/uL (0.0-0.2); #Eosinphils 0.4 thou/uL (0.0-0.7); #Lymphocytes 0.9 thou/uL (1.20-3.40); #Monocytes 0.8 thou/uL (0.11-0.59); #Neutrophils 11.1 thou/uL (1.40-6.50); %Basophils 0.6 % (0.0-1.0); %Eosinophils 3.3 % (0.0-10.0); %Lymphocytes 6.6 % (21.0-51.0); %Monocytes 5.7 % (0.0-10.0); %Neutrophils 83.8 % (42.0-75.0); Hemoglobin 11.9 g/dL (14.0-18.0); Mean Corpuscular HGB CONC 30.8 g/dL (32.0-36.0); Mean Corpuscular Hemoglobin 25.6 pg (27.0-31.0); Mean Corpuscular Volume 83.1 fl (78.0-98.0); Mean Platelet Volume 7.4 fL (7.4-10.4); Platelet Count 534 10x3/uL (130-400); RBC Distribution Width 13.7 % (11.5-14.5); Red Blood Cell (RBC) Count 4.67 mill/uL (4.70-6.10); White Blood Cell (WBC) Count 13.3 10x3/uL (4.8-10.8)
[2022-08-22] MEDS: NIFEdipine XL 90 MG TAB PO SCH (08:23)
[2022-08-22] MEDS: Acetaminophen 500 MG TAB PO SCH ×3 (08:23→20:36)
[2022-08-22 08:24] LABS: Anion Gap 14 mmol/L (10-20); BUN (Urea Nitrogen) 24 mg/dL (8.4-25.7); Calc. Creatinine Clearance 116 mL/min (70-130); Calcium 9.7 mg/dL (7.8-10.44); Carbon Dioxide 23 mmol/L (22-29); Chloride 98 mmol/L (98-107); Estimated GFR 105; Glucose 157 mg/dL (70-105); Potassium 3.7 mmol/L (3.5-5.1); Sodium 131 mmol/L (136-145)
[2022-08-22] MEDS: Losartan 25 MG TAB PO SCH (08:24)
[2022-08-22] MEDS: Hydrochlorothiazide 25 MG TAB PO SCH (08:25)
[2022-08-22] MEDS: Famotidine 20 MG TAB PO SCH ×2 (08:26→20:35)
[2022-08-22] MEDS: cefTRIAXone\\ROCEPHIN 1 GM in Sodium Chloride 0.9% 100 ML IVPB SCH (20:36)
[2022-08-22] MEDS: hydrALAZINE 20 MG/ML VIAL SLOW IVP PRN (20:43)
[2022-08-23] MEDS: traMADol HCl 50 MG TAB PO PRN ×2 (04:49→20:22)
[2022-08-23 07:25] LABS: #Basophils 0.1 thou/uL (0.0-0.2); #Eosinphils 0.6 thou/uL (0.0-0.7); #Lymphocytes 1.1 thou/uL (1.20-3.40); #Monocytes 0.9 thou/uL (0.11-0.59); #Neutrophils 11.6 thou/uL (1.40-6.50); %Basophils 0.6 % (0.0-1.0); %Eosinophils 4.3 % (0.0-10.0); %Lymphocytes 7.7 % (21.0-51.0); %Monocytes 6.1 % (0.0-10.0); %Neutrophils 81.3 % (42.0-75.0); Hemoglobin 11.2 g/dL (14.0-18.0); Mean Corpuscular HGB CONC 32.8 g/dL (32.0-36.0); Mean Corpuscular Hemoglobin 27.2 pg (27.0-31.0); Mean Corpuscular Volume 82.9 fl (78.0-98.0); Mean Platelet Volume 7.4 fL (7.4-10.4); Platelet Count 511 10x3/uL (130-400); RBC Distribution Width 13.6 % (11.5-14.5); Red Blood Cell (RBC) Count 4.12 mill/uL (4.70-6.10); White Blood Cell (WBC) Count 14.3 10x3/uL (4.8-10.8)
[2022-08-23 07:44] LABS: Anion Gap 15 mmol/L (10-20); BUN (Urea Nitrogen) 19 mg/dL (8.4-25.7); Calc. Creatinine Clearance 122 mL/min (70-130); Calcium 9.7 mg/dL (7.8-10.44); Carbon Dioxide 20 mmol/L (22-29); Chloride 102 mmol/L (98-107); Estimated GFR 107; Glucose 123 mg/dL (70-105); Potassium 3.7 mmol/L (3.5-5.1); Sodium 133 mmol/L (136-145)
[2022-08-23] MEDS: Hydrochlorothiazide 25 MG TAB PO SCH (08:48)
[2022-08-23] MEDS: Famotidine 20 MG TAB PO SCH ×2 (08:49→20:19)
[2022-08-23] MEDS: Acetaminophen 500 MG TAB PO SCH ×3 (08:49→20:20)
[2022-08-23] MEDS: NIFEdipine XL 90 MG TAB PO SCH (08:49)
[2022-08-23] MEDS: Losartan 25 MG TAB PO SCH (08:49)
[2022-08-23] MEDS: cefTRIAXone\\ROCEPHIN 1 GM in Sodium Chloride 0.9% 100 ML IVPB SCH (20:19)
[2022-08-24] MEDS: Morphine 4 MG/ML VIAL SLOW IVP PRN ×2 (00:47→12:23)
[2022-08-24 06:20] LABS: #Basophils 0.1 thou/uL (0.0-0.2); #Eosinphils 0.6 thou/uL (0.0-0.7); #Monocytes 0.8 thou/uL (0.11-0.59); %Basophils 0.8 % (0.0-1.0); %Eosinophils 3.8 % (0.0-10.0); %Lymphocytes 6.9 % (21.0-51.0); %Monocytes 5.8 % (0.0-10.0); %Neutrophils 82.8 % (42.0-75.0); Mean Corpuscular HGB CONC 32.6 g/dL (32.0-36.0); Mean Corpuscular Volume 82.9 fl (78.0-98.0); Mean Platelet Volume 7.3 fL (7.4-10.4); Platelet Count 532 10x3/uL (130-400); RBC Distribution Width 13.7 % (11.5-14.5); Red Blood Cell (RBC) Count 4.09 mill/uL (4.70-6.10); White Blood Cell (WBC) Count 14.5 10x3/uL (4.8-10.8)
[2022-08-24 06:40] LABS: Anion Gap 15 mmol/L (10-20); BUN (Urea Nitrogen) 23 mg/dL (8.4-25.7); Calc. Creatinine Clearance 119 mL/min (70-130); Calcium 9.9 mg/dL (7.8-10.44); Carbon Dioxide 21 mmol/L (22-29); Chloride 102 mmol/L (98-107); Estimated GFR 106; Glucose 128 mg/dL (70-105); Potassium 3.7 mmol/L (3.5-5.1); Sodium 134 mmol/L (136-145)
[2022-08-24] MEDS ORDERED: metFORMIN 500 MG TAB PO SCH (08:00)
[2022-08-24] MEDS: Famotidine 20 MG TAB PO SCH (09:34)
[2022-08-24] MEDS: Losartan 25 MG TAB PO SCH (09:34)
[2022-08-24] MEDS: Hydrochlorothiazide 25 MG TAB PO SCH (09:35)
[2022-08-24] MEDS: NIFEdipine XL 90 MG TAB PO SCH (09:35)
[2022-08-24] MEDS: Acetaminophen 500 MG TAB PO SCH ×2 (09:35→15:54)
[2022-08-24 16:41] VITALS: TEMP 97.9
[2022-08-24 16:47] VITALS: BP 147/86
[2022-08-24] MEDS ORDERED: Cefdinir 300 MG CAP PO SCH (21:00)
== END 2022-08-24 17:29 | disposition home or self-care (01) | DRG 872 ==
LOC: ERS 09:58 → OBSVTOIN 14:12 → T4-B 14:12
PROVIDERS: ADMIT Hospitalist; ATTEND Internal Medicine
DX: A41.9 Sepsis, unspecified organism (principal); L03.115 Cellulitis of right lower limb; I50.32 Chronic diastolic (congestive) heart failure; L97.912 Non-pressure chronic ulcer of unspecified part of right lower leg with fat layer exposed; I11.0 Hypertensive heart disease with heart failure; E11.621 Type 2 diabetes mellitus with foot ulcer; E11.65 Type 2 diabetes mellitus with hyperglycemia; E11.51 Type 2 diabetes mellitus with diabetic peripheral angiopathy without gangrene; Z91.011 Allergy to milk products; Z79.84 Long term (current) use of oral hypoglycemic drugs; Z79.899 Other long term (current) drug therapy; Z90.49 Acquired absence of other specified parts of digestive tract
CPT/HCPCS: 36415; 36416; 80048; 80053; 80202; 83605; 85025; 85610; 85652; 85730; 86140; 87040; 87070; 87077; 87186; 87205; 87811; 96365; 96366; 96367; 96375; 97139; A9579; J0360; J0696; J1650; J1815; J2185; J2270; J3370; J3370-JW; J3490; J7050; U0003; U0005

== ENCOUNTER 2022-09-24 13:56 | Inpatient (IN) | payer OTHER ==
[2022-09-24 18:22] VITALS: BMI 29.9
[2022-09-24] MEDS ORDERED: hydrALAZINE 20 MG/ML VIAL SLOW IVP PRN (18:47)
[2022-09-24] MEDS ORDERED: Ondansetron PF 4 MG/2 ML Vial IVP PRN (18:47)
[2022-09-24] MEDS ORDERED: Acetaminophen 500 MG TAB PO PRN (18:47)
[2022-09-24] MEDS ORDERED: Dextrose 5% in Water 1,000 ML IV PRN (18:47)
[2022-09-24] MEDS ORDERED: Ondansetron ODT 4 MG TAB PO PRN (18:47)
[2022-09-24] MEDS ORDERED: Dextrose 50% Abboject 50 ML SYRINGE SLOW IVP PRN (18:47)
[2022-09-24] MEDS ORDERED: traMADol HCl 50 MG TAB PO PRN (18:47)
[2022-09-24] MEDS: Vancomycin 1 GM in Premix Bag 1 BAG IVPB SCH (20:38)
[2022-09-24] MEDS: Cefepime 2 GM in Sodium Chloride 0.9% 100 ML IVPB SCH (20:38)
[2022-09-24] MEDS: Famotidine 20 MG TAB PO SCH (20:39)
[2022-09-24] MEDS: HumaLOG 300 UNITS/3 ML VIAL SC PRN (20:49)
[2022-09-24] MEDS ORDERED: Vancomycin HCl 1 GM in Sodium Chloride 0.9% 250 ML 250 ML IVPB SCH (21:00)
[2022-09-24] MEDS: metroNIDAZOLE 500 MG in Premix Bag 1 BAG IVPB SCH (22:29)
[2022-09-25] MEDS: metroNIDAZOLE 500 MG in Premix Bag 1 BAG IVPB SCH (05:01)
[2022-09-25 06:55] LABS: #Basophils 0.1 thou/uL (0.0-0.2); #Eosinphils 0.7 thou/uL (0.0-0.7); #Monocytes 0.8 thou/uL (0.11-0.59); #Neutrophils 8.1 thou/uL (1.40-6.50); %Basophils 0.5 % (0.0-1.0); %Eosinophils 6.5 % (0.0-10.0); %Lymphocytes 9.1 % (21.0-51.0); %Monocytes 7.4 % (0.0-10.0); %Neutrophils 76.5 % (42.0-75.0); Hemoglobin 10.2 g/dL (14.0-18.0); Mean Corpuscular HGB CONC 33.1 g/dL (32.0-36.0); Mean Corpuscular Hemoglobin 26.9 pg (27.0-31.0); Mean Corpuscular Volume 81.4 fl (78.0-98.0); Mean Platelet Volume 7.6 fL (7.4-10.4); Platelet Count 313 10x3/uL (130-400); RBC Distribution Width 14.7 % (11.5-14.5); Red Blood Cell (RBC) Count 3.79 mill/uL (4.70-6.10); White Blood Cell (WBC) Count 10.6 10x3/uL (4.8-10.8)
[2022-09-25 07:06] LABS: ALT (SGPT) 13 U/L (8-55); AST (SGOT) 11 U/L (5-34); Albumin 3.3 g/dL (3.5-5.0); Alkaline Phosphatase 186 U/L (40-110); Anion Gap 13 mmol/L (10-20); BUN (Urea Nitrogen) 12 mg/dL (8.4-25.7); Bilirubin, Total 0.3 mg/dL (0.2-1.2); Calc. Creatinine Clearance 107 mL/min (70-130); Calcium 9.1 mg/dL (7.8-10.44); Carbon Dioxide 22 mmol/L (22-29); Chloride 107 mmol/L (98-107); Estimated GFR 103; Globulin 3.6 g/dL (2.4-3.5); Glucose 142 mg/dL (70-105); Protein, Total 6.9 g/dL (6.0-8.3); Sodium 138 mmol/L (136-145)
[2022-09-25 07:15] LABS: Vancomycin, Trough 12.9 ug/mL
[2022-09-25] MEDS: metFORMIN XR 500 MG TAB PO SCH (09:01)
[2022-09-25] MEDS: NIFEdipine XL 90 MG TAB PO SCH (09:01)
[2022-09-25] MEDS: Famotidine 20 MG TAB PO SCH ×2 (09:01→19:51)
[2022-09-25] MEDS: Losartan 25 MG TAB PO SCH (09:01)
[2022-09-25] MEDS: Aspirin 81 mg Enteric Coated Tablet PO SCH (09:01)
[2022-09-25] MEDS: Vancomycin 1 GM in Premix Bag 1 BAG IVPB SCH ×2 (09:02→19:51)
[2022-09-25] MEDS: Cefepime 2 GM in Sodium Chloride 0.9% 100 ML IVPB SCH (10:34)
[2022-09-25] MEDS: HYDROcodone/Acetaminophen 5/325 mg Tablet PO PRN (11:54)
[2022-09-25] MEDS: HumaLOG 300 UNITS/3 ML VIAL SC PRN (16:33)
[2022-09-25] MEDS: Amoxicillin/Potassium Clav 875 MG TAB PO SCH (19:51)
[2022-09-26] MEDS: HYDROcodone/Acetaminophen 5/325 mg Tablet PO PRN ×2 (04:33→20:05)
[2022-09-26] MEDS: Vancomycin 1 GM in Premix Bag 1 BAG IVPB SCH ×2 (08:24→20:05)
[2022-09-26] MEDS: Losartan 25 MG TAB PO SCH (08:25)
[2022-09-26] MEDS: Famotidine 20 MG TAB PO SCH ×2 (08:25→20:06)
[2022-09-26] MEDS: Clopidogrel Bisulfate 75 MG TAB PO SCH (08:25)
[2022-09-26] MEDS: metFORMIN XR 500 MG TAB PO SCH (08:25)
[2022-09-26] MEDS: Amoxicillin/Potassium Clav 875 MG TAB PO SCH ×2 (08:25→20:06)
[2022-09-26] MEDS: Aspirin 81 mg Enteric Coated Tablet PO SCH (08:25)
[2022-09-26] MEDS: NIFEdipine XL 90 MG TAB PO SCH (08:30)
[2022-09-26 09:47] LABS: #Basophils 0.1 thou/uL (0.0-0.2); #Eosinphils 0.7 thou/uL (0.0-0.7); #Lymphocytes 1.2 thou/uL (1.20-3.40); #Monocytes 0.9 thou/uL (0.11-0.59); #Neutrophils 8.4 thou/uL (1.40-6.50); %Basophils 0.5 % (0.0-1.0); %Eosinophils 6.4 % (0.0-10.0); %Lymphocytes 10.9 % (21.0-51.0); %Neutrophils 74.2 % (42.0-75.0); Hemoglobin 10.8 g/dL (14.0-18.0); Mean Corpuscular HGB CONC 31.3 g/dL (32.0-36.0); Mean Corpuscular Hemoglobin 25.7 pg (27.0-31.0); Mean Corpuscular Volume 81.9 fl (78.0-98.0); Mean Platelet Volume 7.5 fL (7.4-10.4); Platelet Count 376 10x3/uL (130-400); RBC Distribution Width 14.7 % (11.5-14.5); Red Blood Cell (RBC) Count 4.21 mill/uL (4.70-6.10); White Blood Cell (WBC) Count 11.4 10x3/uL (4.8-10.8)
[2022-09-26 10:04] LABS: Anion Gap 13 mmol/L (10-20); BUN (Urea Nitrogen) 17 mg/dL (8.4-25.7); Calc. Creatinine Clearance 103 mL/min (70-130); Calcium 9.3 mg/dL (7.8-10.44); Carbon Dioxide 19 mmol/L (22-29); Chloride 104 mmol/L (98-107); Estimated GFR 102; Glucose 227 mg/dL (70-105); Potassium 3.8 mmol/L (3.5-5.1); Sodium 132 mmol/L (136-145)
[2022-09-26] MEDS: Carvedilol 6.25 MG TAB PO SCH (16:55)
[2022-09-26 19:36] LABS: Vancomycin, Trough 16.9 ug/mL
[2022-09-26] MEDS: HumaLOG 300 UNITS/3 ML VIAL SC PRN (20:07)
[2022-09-27] MEDS: HYDROcodone/Acetaminophen 5/325 mg Tablet PO PRN (04:00)
[2022-09-27 07:29] LABS: #Basophils 0.1 thou/uL (0.0-0.2); #Eosinphils 0.7 thou/uL (0.0-0.7); #Lymphocytes 1.1 thou/uL (1.20-3.40); #Monocytes 0.8 thou/uL (0.11-0.59); #Neutrophils 7.4 thou/uL (1.40-6.50); %Basophils 0.8 % (0.0-1.0); %Eosinophils 6.8 % (0.0-10.0); %Lymphocytes 11.2 % (21.0-51.0); %Monocytes 8.3 % (0.0-10.0); %Neutrophils 72.9 % (42.0-75.0); Hemoglobin 10.9 g/dL (14.0-18.0); Mean Corpuscular HGB CONC 31.5 g/dL (32.0-36.0); Mean Corpuscular Hemoglobin 25.7 pg (27.0-31.0); Mean Corpuscular Volume 81.7 fl (78.0-98.0); Mean Platelet Volume 7.5 fL (7.4-10.4); Platelet Count 415 10x3/uL (130-400); RBC Distribution Width 14.5 % (11.5-14.5); Red Blood Cell (RBC) Count 4.25 mill/uL (4.70-6.10); White Blood Cell (WBC) Count 10.1 10x3/uL (4.8-10.8)
[2022-09-27 07:45] LABS: Anion Gap 11 mmol/L (10-20); BUN (Urea Nitrogen) 17 mg/dL (8.4-25.7); Calc. Creatinine Clearance 98 mL/min (70-130); Calcium 9.5 mg/dL (7.8-10.44); Carbon Dioxide 23 mmol/L (22-29); Chloride 103 mmol/L (98-107); Estimated GFR 101; Glucose 121 mg/dL (70-105); Potassium 3.9 mmol/L (3.5-5.1); Sodium 133 mmol/L (136-145)
[2022-09-27] MEDS: Carvedilol 6.25 MG TAB PO SCH ×2 (08:27→17:19)
[2022-09-27] MEDS: Aspirin 81 mg Enteric Coated Tablet PO SCH (08:27)
[2022-09-27] MEDS: Famotidine 20 MG TAB PO SCH ×2 (08:27→19:48)
[2022-09-27] MEDS: Amoxicillin/Potassium Clav 875 MG TAB PO SCH ×2 (08:27→19:48)
[2022-09-27] MEDS: Losartan 25 MG TAB PO SCH (08:28)
[2022-09-27] MEDS: Clopidogrel Bisulfate 75 MG TAB PO SCH (08:28)
[2022-09-27] MEDS: Vancomycin 1 GM in Premix Bag 1 BAG IVPB SCH (08:31)
[2022-09-27] MEDS: NIFEdipine XL 90 MG TAB PO SCH (08:33)
[2022-09-27] MEDS: metFORMIN XR 500 MG TAB PO SCH (08:34)
[2022-09-27] MEDS ORDERED: Dexamethasone 4 mg/ml Vial SLOW IVP SCH (09:00)
[2022-09-28] MEDS: HYDROcodone/Acetaminophen 5/325 mg Tablet PO PRN ×3 (02:08→19:51)
[2022-09-28 08:32] LABS: #Basophils 0.1 thou/uL (0.0-0.2); #Eosinphils 0.7 thou/uL (0.0-0.7); #Lymphocytes 1.4 thou/uL (1.20-3.40); #Monocytes 0.9 thou/uL (0.11-0.59); #Neutrophils 6.2 thou/uL (1.40-6.50); %Basophils 0.7 % (0.0-1.0); %Lymphocytes 15.4 % (21.0-51.0); %Monocytes 9.3 % (0.0-10.0); %Neutrophils 66.6 % (42.0-75.0); Hemoglobin 10.5 g/dL (14.0-18.0); Mean Corpuscular HGB CONC 32.3 g/dL (32.0-36.0); Mean Corpuscular Hemoglobin 26.1 pg (27.0-31.0); Mean Corpuscular Volume 80.7 fl (78.0-98.0); Mean Platelet Volume 7.7 fL (7.4-10.4); Platelet Count 403 10x3/uL (130-400); RBC Distribution Width 14.5 % (11.5-14.5); Red Blood Cell (RBC) Count 4.01 mill/uL (4.70-6.10); White Blood Cell (WBC) Count 9.3 10x3/uL (4.8-10.8)
[2022-09-28 08:53] LABS: Anion Gap 13 mmol/L (10-20); BUN (Urea Nitrogen) 20 mg/dL (8.4-25.7); Calc. Creatinine Clearance 100 mL/min (70-130); Calcium 9.4 mg/dL (7.8-10.44); Carbon Dioxide 22 mmol/L (22-29); Chloride 104 mmol/L (98-107); Estimated GFR 101; Glucose 128 mg/dL (70-105); Potassium 3.8 mmol/L (3.5-5.1); Sodium 135 mmol/L (136-145)
[2022-09-28] MEDS: Clopidogrel Bisulfate 75 MG TAB PO SCH (09:17)
[2022-09-28] MEDS: Famotidine 20 MG TAB PO SCH ×2 (09:17→19:52)
[2022-09-28] MEDS: NIFEdipine XL 90 MG TAB PO SCH (09:17)
[2022-09-28] MEDS: Losartan 25 MG TAB PO SCH (09:18)
[2022-09-28] MEDS: Aspirin 81 mg Enteric Coated Tablet PO SCH (09:18)
[2022-09-28] MEDS: Amoxicillin/Potassium Clav 875 MG TAB PO SCH ×2 (09:18→19:52)
[2022-09-28] MEDS: Carvedilol 6.25 MG TAB PO SCH ×2 (09:18→16:15)
[2022-09-28] MEDS: metFORMIN XR 500 MG TAB PO SCH (09:18)
[2022-09-28] MEDS: HumaLOG 300 UNITS/3 ML VIAL SC PRN ×2 (12:17→16:17)
[2022-09-29] MEDS: HYDROcodone/Acetaminophen 5/325 mg Tablet PO PRN ×2 (02:09→15:19)
[2022-09-29 07:01] LABS: #Basophils 0.1 thou/uL (0.0-0.2); #Eosinphils 0.6 thou/uL (0.0-0.7); #Lymphocytes 1.4 thou/uL (1.20-3.40); #Monocytes 1.1 thou/uL (0.11-0.59); #Neutrophils 6.8 thou/uL (1.40-6.50); %Basophils 0.7 % (0.0-1.0); %Eosinophils 6.3 % (0.0-10.0); %Lymphocytes 14.3 % (21.0-51.0); %Monocytes 10.5 % (0.0-10.0); %Neutrophils 68.2 % (42.0-75.0); Hemoglobin 10.8 g/dL (14.0-18.0); Mean Corpuscular HGB CONC 32.5 g/dL (32.0-36.0); Mean Corpuscular Hemoglobin 26.4 pg (27.0-31.0); Mean Platelet Volume 7.4 fL (7.4-10.4); Platelet Count 446 10x3/uL (130-400); RBC Distribution Width 14.4 % (11.5-14.5); Red Blood Cell (RBC) Count 4.08 mill/uL (4.70-6.10); White Blood Cell (WBC) Count 9.9 10x3/uL (4.8-10.8)
[2022-09-29 07:25] LABS: Anion Gap 13 mmol/L (10-20); BUN (Urea Nitrogen) 25 mg/dL (8.4-25.7); Calc. Creatinine Clearance 88 mL/min (70-130); Calcium 9.4 mg/dL (7.8-10.44); Carbon Dioxide 21 mmol/L (22-29); Chloride 104 mmol/L (98-107); Estimated GFR 91; Glucose 108 mg/dL (70-105); Potassium 4.2 mmol/L (3.5-5.1); Sodium 134 mmol/L (136-145)
[2022-09-29 07:32] VITALS: BP 147/97; TEMP 97.8
[2022-09-29] MEDS: Clopidogrel Bisulfate 75 MG TAB PO SCH (08:25)
[2022-09-29] MEDS: Famotidine 20 MG TAB PO SCH (08:25)
[2022-09-29] MEDS: Losartan 25 MG TAB PO SCH (08:25)
[2022-09-29] MEDS: Carvedilol 6.25 MG TAB PO SCH (08:25)
[2022-09-29] MEDS: Amoxicillin/Potassium Clav 875 MG TAB PO SCH (08:26)
[2022-09-29] MEDS: Aspirin 81 mg Enteric Coated Tablet PO SCH (08:26)
[2022-09-29] MEDS: metFORMIN XR 500 MG TAB PO SCH (08:26)
[2022-09-29] MEDS: NIFEdipine XL 90 MG TAB PO SCH (08:29)
[2022-09-29] MEDS: HumaLOG 300 UNITS/3 ML VIAL SC PRN (13:49)
== END 2022-09-29 16:15 | disposition home or self-care (01) | DRG 300 ==
LOC: T4-A 13:56
PROVIDERS: ADMIT Family Medicine; ATTEND Hospitalist
PROC: 0HBKXZZ Excision of Right Lower Leg Skin, External Approach (ICD-10-PCS; principal; 2022-09-24)
DX: E11.51 Type 2 diabetes mellitus with diabetic peripheral angiopathy without gangrene (principal); I50.32 Chronic diastolic (congestive) heart failure; L03.115 Cellulitis of right lower limb; E11.628 Type 2 diabetes mellitus with other skin complications; I11.0 Hypertensive heart disease with heart failure; D50.9 Iron deficiency anemia, unspecified; Z91.011 Allergy to milk products
CPT/HCPCS: 36415; 36416; 80048; 80053; 80202; 85025; 97139; J0692; J1650; J1815; J3370-JW; J3490

== ENCOUNTER 2022-11-30 18:24 | Emergency (ER) | payer OTHER ==
[2022-11-30 18:56] LABS: #Basophils 0.1 thou/uL (0.0-0.2); #Eosinphils 0.5 thou/uL (0.0-0.7); #Monocytes 0.8 thou/uL (0.11-0.59); #Neutrophils 5.4 thou/uL (1.40-6.50); %Basophils 0.8 % (0.0-1.0); %Eosinophils 7.2 % (0.0-10.0); %Lymphocytes 10.1 % (21.0-51.0); %Neutrophils 71.5 % (42.0-75.0); Hemoglobin 11.6 g/dL (14.0-18.0); Mean Corpuscular HGB CONC 32.3 g/dL (32.0-36.0); Mean Corpuscular Hemoglobin 25.4 pg (27.0-31.0); Mean Corpuscular Volume 78.7 fl (78.0-98.0); Mean Platelet Volume 10.1 fL (7.4-10.4); Platelet Count 306 10x3/uL (130-400); RBC Distribution Width 15.9 % (11.5-14.5); Red Blood Cell (RBC) Count 4.56 mill/uL (4.70-6.10); White Blood Cell (WBC) Count 7.5 10x3/uL (4.8-10.8)
[2022-11-30 19:22] LABS: ALT (SGPT) 26 U/L (8-55); AST (SGOT) 22 U/L (5-34); Alkaline Phosphatase 222 U/L (40-110); Anion Gap 15 mmol/L (10-20); BUN (Urea Nitrogen) 33 mg/dL (8.4-25.7); Bilirubin, Total 0.4 mg/dL (0.2-1.2); Calc. Creatinine Clearance 0 mL/min (70-130); Calcium 9.6 mg/dL (7.8-10.44); Carbon Dioxide 21 mmol/L (22-29); Chloride 104 mmol/L (98-107); Estimated GFR 55; Globulin 3.8 g/dL (2.4-3.5); Glucose 150 mg/dL (70-105); Potassium 4.3 mmol/L (3.5-5.1); Protein, Total 7.8 g/dL (6.0-8.3); Sodium 136 mmol/L (136-145)
[2022-11-30] MEDS ORDERED: hydrALAZINE 25 MG TAB ONE (22:18)
== END 2022-11-30 22:37 | disposition home or self-care (01) ==
LOC: ERS 18:24
DX: I16.0 Hypertensive urgency (principal); E11.9 Type 2 diabetes mellitus without complications; I10 Essential (primary) hypertension
CPT/HCPCS: 36415; 71045; 80053; 84484; 85025; 93005

== ENCOUNTER 2022-12-04 06:52 | Emergency (ER) | payer OTHER ==
[2022-12-04] MEDS ORDERED: hydrALAZINE 20 MG/ML VIAL ONE (07:30)
[2022-12-04 07:31] LABS: #Basophils 0.1 thou/uL (0.0-0.2); #Eosinphils 0.5 thou/uL (0.0-0.7); #Monocytes 0.6 thou/uL (0.11-0.59); #Neutrophils 5.9 thou/uL (1.40-6.50); %Eosinophils 6.3 % (0.0-10.0); %Lymphocytes 12.1 % (21.0-51.0); %Monocytes 7.3 % (0.0-10.0); %Neutrophils 73.1 % (42.0-75.0); Hemoglobin 11.2 g/dL (14.0-18.0); Mean Corpuscular HGB CONC 31.8 g/dL (32.0-36.0); Mean Corpuscular Hemoglobin 25.5 pg (27.0-31.0); Mean Platelet Volume 9.9 fL (7.4-10.4); Platelet Count 313 10x3/uL (130-400); RBC Distribution Width 15.6 % (11.5-14.5); White Blood Cell (WBC) Count 8.1 10x3/uL (4.8-10.8)
[2022-12-04 07:53] LABS: ALT (SGPT) 27 U/L (8-55); AST (SGOT) 25 U/L (5-34); Albumin 4.1 g/dL (3.5-5.0); Alkaline Phosphatase 205 U/L (40-110); Anion Gap 15 mmol/L (10-20); BUN (Urea Nitrogen) 23 mg/dL (8.4-25.7); Bilirubin, Total 0.3 mg/dL (0.2-1.2); Calc. Creatinine Clearance 0 mL/min (70-130); Calcium 9.6 mg/dL (7.8-10.44); Carbon Dioxide 19 mmol/L (22-29); Chloride 103 mmol/L (98-107); Estimated GFR 83; Globulin 3.3 g/dL (2.4-3.5); Glucose 106 mg/dL (70-105); Potassium 3.9 mmol/L (3.5-5.1); Protein, Total 7.4 g/dL (6.0-8.3); Sodium 133 mmol/L (136-145)
[2022-12-04] MEDS ORDERED: Ketorolac Tromethamine 30 MG/ML VIAL ONE (08:05)
[2022-12-04 08:15] LABS: CKMB 3.9 ng/mL (0-6.6)
== END 2022-12-04 08:40 | disposition home or self-care (01) ==
LOC: ERS 06:52
DX: M79.605 Pain in left leg (principal); R51.9 Headache, unspecified; I10 Essential (primary) hypertension; E11.9 Type 2 diabetes mellitus without complications
CPT/HCPCS: 36415; 80053; 82553; 84484; 85025; 93005; 96374; 96375; J0360; J1885

== ENCOUNTER 2022-12-16 15:36 | Inpatient (IN) | payer OTHER ==
[2022-12-16] MEDS ORDERED: Aspirin 325 MG TAB ONE (16:38)
[2022-12-16 16:46] LABS: #Basophils 0.1 thou/uL (0.0-0.2); #Eosinphils 0.7 thou/uL (0.0-0.7); #Monocytes 0.9 thou/uL (0.11-0.59); #Neutrophils 6.9 thou/uL (1.40-6.50); %Basophils 0.8 % (0.0-1.0); %Eosinophils 6.7 % (0.0-10.0); %Lymphocytes 12.1 % (21.0-51.0); %Monocytes 9.5 % (0.0-10.0); %Neutrophils 70.4 % (42.0-75.0); Hemoglobin 10.3 g/dL (14.0-18.0); Mean Corpuscular HGB CONC 32.3 g/dL (32.0-36.0); Mean Corpuscular Hemoglobin 25.9 pg (27.0-31.0); Mean Corpuscular Volume 80.2 fl (78.0-98.0); Mean Platelet Volume 9.7 fL (7.4-10.4); Platelet Count 306 10x3/uL (130-400); RBC Distribution Width 15.5 % (11.5-14.5); Red Blood Cell (RBC) Count 3.98 mill/uL (4.70-6.10); White Blood Cell (WBC) Count 9.8 10x3/uL (4.8-10.8)
[2022-12-16 17:15] LABS: ALT (SGPT) 17 U/L (8-55); AST (SGOT) 15 U/L (5-34); Albumin 3.7 g/dL (3.5-5.0); Alkaline Phosphatase 172 U/L (40-110); Anion Gap 15 mmol/L (10-20); BUN (Urea Nitrogen) 28 mg/dL (8.4-25.7); Bilirubin, Total 0.2 mg/dL (0.2-1.2); Calc. Creatinine Clearance 0 mL/min (70-130); Calcium 9.6 mg/dL (7.8-10.44); Carbon Dioxide 20 mmol/L (22-29); Chloride 105 mmol/L (98-107); Estimated GFR 71; Globulin 3.5 g/dL (2.4-3.5); Glucose 191 mg/dL (70-105); Potassium 4.1 mmol/L (3.5-5.1); Protein, Total 7.2 g/dL (6.0-8.3); Sodium 136 mmol/L (136-145)
[2022-12-16] MEDS ORDERED: Dextrose 5% in Water 1,000 ML IV PRN (18:38)
[2022-12-16] MEDS ORDERED: Dextrose 50% Abboject 50 ML SYRINGE SLOW IVP PRN (18:38)
[2022-12-16] MEDS ORDERED: HumaLOG 300 UNITS/3 ML VIAL SC PRN ×2 (18:38)
[2022-12-16] MEDS ORDERED: Glucagon 1 MG/ML KIT IM PRN (18:38)
[2022-12-16 20:01] LABS: #Basophils 0.1 thou/uL (0.0-0.2); #Eosinphils 0.7 thou/uL (0.0-0.7); #Monocytes 0.9 thou/uL (0.11-0.59); #Neutrophils 7.7 thou/uL (1.40-6.50); %Basophils 0.8 % (0.0-1.0); %Eosinophils 6.2 % (0.0-10.0); %Lymphocytes 13.4 % (21.0-51.0); %Monocytes 8.1 % (0.0-10.0); %Neutrophils 71.1 % (42.0-75.0); Hemoglobin 11.3 g/dL (14.0-18.0); Mean Corpuscular HGB CONC 31.4 g/dL (32.0-36.0); Mean Corpuscular Hemoglobin 25.7 pg (27.0-31.0); Mean Corpuscular Volume 81.8 fl (78.0-98.0); Mean Platelet Volume 9.8 fL (7.4-10.4); Platelet Count 342 10x3/uL (130-400); RBC Distribution Width 15.4 % (11.5-14.5); White Blood Cell (WBC) Count 10.9 10x3/uL (4.8-10.8)
[2022-12-16 20:28] LABS: Troponin I 0.028 ng/mL (< 0.028)
[2022-12-16 20:33] LABS: Anion Gap 14 mmol/L (10-20); BUN (Urea Nitrogen) 27 mg/dL (8.4-25.7); Calc. Creatinine Clearance 0 mL/min (70-130); Calcium 10.2 mg/dL (7.8-10.44); Carbon Dioxide 22 mmol/L (22-29); Chloride 105 mmol/L (98-107); Estimated GFR 80; Potassium 4.2 mmol/L (3.5-5.1); Sodium 137 mmol/L (136-145)
[2022-12-16 20:34] VITALS: BMI 30.1
[2022-12-16 21:04] LABS: Glucose 106 mg/dL (70-105)
[2022-12-16 23:16] LABS: Troponin I 0.036 ng/mL (< 0.028)
[2022-12-17] MEDS ORDERED: Acetaminophen 325 MG TAB PO PRN (02:26)
[2022-12-17 03:00] LABS: Troponin I 0.036 ng/mL (< 0.028)
[2022-12-17] MEDS ORDERED: NIFEdipine XL 90 MG TAB PO SCH (03:45)
[2022-12-17 06:10] LABS: Cardiac Risk 2.9 (Less than 4.5)
[2022-12-17] MEDS ORDERED: Aspirin 325 mg Enteric Coated Tablet PO SCH (09:00)
[2022-12-17] MEDS: Hydrochlorothiazide 25 MG TAB PO SCH (09:44)
[2022-12-17] MEDS: Losartan 25 MG TAB PO SCH (09:44)
[2022-12-17] MEDS: Clopidogrel Bisulfate 75 MG TAB PO SCH (09:45)
[2022-12-17] MEDS: Famotidine 20 MG TAB PO SCH ×2 (11:25→22:23)
[2022-12-17] MEDS: Aspirin 81 mg Enteric Coated Tablet PO SCH (11:25)
[2022-12-17] MEDS ORDERED: hydrALAZINE 20 MG/ML VIAL SLOW IVP SCH (16:30)
[2022-12-17] MEDS ORDERED: Communication Order-Pharmacy FS SCH (17:45)
[2022-12-17] MEDS: Atorvastatin Calcium 40 MG TAB PO SCH (22:23)
[2022-12-18 06:00] LABS: Hemoglobin 11.4 g/dL (14.0-18.0); Mean Corpuscular HGB CONC 31.9 g/dL (32.0-36.0); Mean Corpuscular Hemoglobin 25.7 pg (27.0-31.0); Mean Corpuscular Volume 80.6 fl (78.0-98.0); Mean Platelet Volume 9.6 fL (7.4-10.4); Platelet Count 368 10x3/uL (130-400); RBC Distribution Width 15.5 % (11.5-14.5); Red Blood Cell (RBC) Count 4.43 mill/uL (4.70-6.10); White Blood Cell (WBC) Count 12.1 10x3/uL (4.8-10.8)
[2022-12-18] MEDS ORDERED: Midazolam HCl 2 mg/2 ml Vial ONE (06:10)
[2022-12-18] MEDS ORDERED: Lidocaine 1% (PF) 30 ML VIAL ONE (06:10)
[2022-12-18] MEDS ORDERED: fentaNYL 50 mcg/mL 1 mL Vial ONE (06:10)
[2022-12-18 06:30] LABS: Anion Gap 16 mmol/L (10-20); BUN (Urea Nitrogen) 23 mg/dL (8.4-25.7); Calc. Creatinine Clearance 93 mL/min (70-130); Calcium 10.4 mg/dL (7.8-10.44); Carbon Dioxide 21 mmol/L (22-29); Chloride 103 mmol/L (98-107); Estimated GFR 92; Glucose 168 mg/dL (70-105); Potassium 4.2 mmol/L (3.5-5.1); Sodium 136 mmol/L (136-145)
[2022-12-18] MEDS: Losartan 25 MG TAB PO SCH (06:36)
[2022-12-18] MEDS: Clopidogrel Bisulfate 75 MG TAB PO SCH (06:36)
[2022-12-18] MEDS: Aspirin 81 mg Enteric Coated Tablet PO SCH (06:37)
[2022-12-18] MEDS: Famotidine 20 MG TAB PO SCH ×2 (06:37→20:34)
[2022-12-18] MEDS: Hydrochlorothiazide 25 MG TAB PO SCH (06:37)
[2022-12-18] MEDS: NIFEdipine XL 90 MG TAB PO SCH (06:39)
[2022-12-18] MEDS ORDERED: Adenosine 6 MG/2 ML VIAL ONE (07:18)
[2022-12-18] MEDS ORDERED: Nitroglycerin 50 MG/250 ML BOT 0 ML ONE (07:18)
[2022-12-18] MEDS ORDERED: Heparin 10,000 UNITS/ 10 ML VIAL ONE (07:18)
[2022-12-18] MEDS ORDERED: Clopidogrel Bisulfate 300 MG TAB ONE (08:07)
[2022-12-18] MEDS ORDERED: Iopamidol 370 76% 100 ML VIAL ONE (11:18)
[2022-12-18] MEDS: Atorvastatin Calcium 40 MG TAB PO SCH (20:34)
[2022-12-19 04:48] LABS: #Basophils 0.1 thou/uL (0.0-0.2); #Eosinphils 0.6 thou/uL (0.0-0.7); #Neutrophils 8.7 thou/uL (1.40-6.50); %Basophils 0.5 % (0.0-1.0); %Eosinophils 5.2 % (0.0-10.0); %Lymphocytes 7.5 % (21.0-51.0); %Monocytes 8.9 % (0.0-10.0); %Neutrophils 77.5 % (42.0-75.0); Hemoglobin 10.3 g/dL (14.0-18.0); Mean Corpuscular HGB CONC 31.8 g/dL (32.0-36.0); Mean Corpuscular Hemoglobin 25.7 pg (27.0-31.0); Mean Corpuscular Volume 80.8 fl (78.0-98.0); Platelet Count 328 10x3/uL (130-400); RBC Distribution Width 15.4 % (11.5-14.5); Red Blood Cell (RBC) Count 4.01 mill/uL (4.70-6.10); White Blood Cell (WBC) Count 11.2 10x3/uL (4.8-10.8)
[2022-12-19 05:10] LABS: ALT (SGPT) 18 U/L (8-55); AST (SGOT) 13 U/L (5-34); Albumin 3.6 g/dL (3.5-5.0); Alkaline Phosphatase 143 U/L (40-110); Anion Gap 14 mmol/L (10-20); BUN (Urea Nitrogen) 16 mg/dL (8.4-25.7); Bilirubin, Total 0.4 mg/dL (0.2-1.2); Calc. Creatinine Clearance 89 mL/min (70-130); Calcium 9.4 mg/dL (7.8-10.44); Carbon Dioxide 20 mmol/L (22-29); Chloride 106 mmol/L (98-107); Estimated GFR 87; Globulin 3.3 g/dL (2.4-3.5); Glucose 163 mg/dL (70-105); Potassium 4.4 mmol/L (3.5-5.1); Protein, Total 6.9 g/dL (6.0-8.3); Sodium 136 mmol/L (136-145)
[2022-12-19] MEDS: NIFEdipine XL 90 MG TAB PO SCH (08:32)
[2022-12-19 08:33] VITALS: TEMP 98.4
[2022-12-19] MEDS: Famotidine 20 MG TAB PO SCH (08:33)
[2022-12-19] MEDS: Aspirin 81 mg Enteric Coated Tablet PO SCH (08:33)
[2022-12-19] MEDS: Hydrochlorothiazide 25 MG TAB PO SCH (08:33)
[2022-12-19] MEDS: Clopidogrel Bisulfate 75 MG TAB PO SCH (08:33)
[2022-12-19] MEDS: Losartan 25 MG TAB PO SCH (08:33)
[2022-12-19 09:34] VITALS: BP 176/81
== END 2022-12-19 11:30 | disposition home or self-care (01) | DRG 247 ==
LOC: ERS 15:36 → 2SW 18:29 → OBSVTOIN 18:29
PROVIDERS: ADMIT Hospitalist; ATTEND Internal Medicine
PROC: 027034Z Dilation of Coronary Artery, One Artery with Drug-eluting Intraluminal Device, Percutaneous Approach (ICD-10-PCS; principal; 2022-12-18)
PROC: 4A023N7 Measurement of Cardiac Sampling and Pressure, Left Heart, Percutaneous Approach (ICD-10-PCS; 2022-12-18)
PROC: B2111ZZ Fluoroscopy of Multiple Coronary Arteries using Low Osmolar Contrast (ICD-10-PCS; 2022-12-18)
DX: I25.119 Atherosclerotic heart disease of native coronary artery with unspecified angina pectoris (principal); I10 Essential (primary) hypertension; E78.00 Pure hypercholesterolemia, unspecified; E11.51 Type 2 diabetes mellitus with diabetic peripheral angiopathy without gangrene; Z90.49 Acquired absence of other specified parts of digestive tract; Z88.8 Allergy status to other drugs, medicaments and biological substances; Z91.011 Allergy to milk products; Z79.84 Long term (current) use of oral hypoglycemic drugs; Z79.899 Other long term (current) drug therapy
CPT/HCPCS: 36415; 36416; 71045; 80048; 80053; 80061; 83880; 84484; 85025; 85027; 85347; 92928; 93005; 93010; 93458; 93798; 94760; 96372; 96374; 97139; 99152; 99153; C1725; C1769; C1874; C1887; C9600; G0378; J0153; J0360; J1644; J1650; J1815; J2001; J2250; J3010

== ENCOUNTER 2023-04-17 16:12 | Inpatient (IN) | payer OTHER ==
[2023-04-17 16:48] LABS: #Basophils 0.1 thou/uL (0.0-0.2); #Eosinphils 0.3 thou/uL (0.0-0.7); #Monocytes 0.7 thou/uL (0.11-0.59); %Basophils 0.6 % (0.0-1.0); %Eosinophils 3.1 % (0.0-10.0); %Lymphocytes 11.4 % (21.0-51.0); %Monocytes 6.9 % (0.0-10.0); %Neutrophils 77.3 % (42.0-75.0); Hematocrit 29.1 % (42.0-52.0); Hemoglobin 9.2 g/dL (14.0-18.0); Mean Corpuscular HGB CONC 31.6 g/dL (32.0-36.0); Mean Corpuscular Hemoglobin 26.4 pg (27.0-31.0); Mean Corpuscular Volume 83.6 fl (78.0-98.0); Mean Platelet Volume 9.9 fL (7.4-10.4); Platelet Count 370 10x3/uL (130-400); RBC Distribution Width 15.4 % (11.5-14.5); Red Blood Cell (RBC) Count 3.48 mill/uL (4.70-6.10); White Blood Cell (WBC) Count 10.4 10x3/uL (4.8-10.8)
[2023-04-17] MEDS ORDERED: Piperacillin/Tazobactam 3.375 GM VIAL ONE (16:52)
[2023-04-17] MEDS ORDERED: Morphine 4 MG/ML VIAL ONE (16:52)
[2023-04-17] MEDS ORDERED: Sodium Chloride 0.9% 100 ML ONE (16:52)
[2023-04-17 17:12] LABS: ALT (SGPT) 20 U/L (8-55); AST (SGOT) 18 U/L (5-34); Albumin 4.1 g/dL (3.5-5.0); Alkaline Phosphatase 239 U/L (40-110); Anion Gap 16 mmol/L (10-20); BUN (Urea Nitrogen) 17 mg/dL (8.4-25.7); Bilirubin, Total 0.5 mg/dL (0.2-1.2); Calc. Creatinine Clearance 0 mL/min (70-130); Calcium 9.2 mg/dL (7.8-10.44); Carbon Dioxide 17 mmol/L (22-29); Chloride 105 mmol/L (98-107); Estimated GFR 89; Globulin 3.4 g/dL (2.4-3.5); Glucose 186 mg/dL (70-105); Potassium 3.9 mmol/L (3.5-5.1); Protein, Total 7.5 g/dL (6.0-8.3); Sodium 134 mmol/L (136-145)
[2023-04-17] MEDS ORDERED: Vancomycin 1 GM/200 ML (FROZEN) BAG ONE (17:16)
[2023-04-17] MEDS ORDERED: Sodium Chloride 0.9% 250 ML 250 ML ONE (17:41)
[2023-04-17] MEDS ORDERED: Azithromycin 500 MG VIAL ONE ×2 (17:41→17:48)
[2023-04-17] MEDS ORDERED: Furosemide 40 MG/4 ML VIAL ONE (17:48)
[2023-04-17 18:41] LABS: Bacteria/HPF None Seen HPF (None Seen); Bilirubin Negative (Negative); Blood, Urine Negative (Negative); CAUTI Indications for Culture Fever or rigors; Clarity Clear (Clear); Glucose, Urine (Dipstick) 50 mg/dL (Negative); Ketone, Urine Negative (Negative); Leukocyte Negative Leu/uL (Negative); Nitrite Negative (Negative); Protein, Urine (Dipstick) 70 mg/dL (Neg-Trace); RBC/HPF 0-3 HPF (0-3); Specific Gravity, Urine 1.009 (1.002-1.036); Squamous Epithelial 0-3 HPF (0-3); Urobilinogen Normal mg/dL (Less than 2); WBC/HPF 0-3 HPF (0-3)
[2023-04-17] MEDS ORDERED: Dextrose 5% in Water 1,000 ML IV PRN (18:43)
[2023-04-17] MEDS ORDERED: Acetaminophen 325 MG TAB PO PRN (18:43)
[2023-04-17] MEDS ORDERED: Acetaminophen 650 MG Suppository PR PRN (18:43)
[2023-04-17] MEDS ORDERED: Glucagon 1 MG/ML KIT IM PRN (18:43)
[2023-04-17] MEDS ORDERED: HumaLOG 300 UNITS/3 ML VIAL SC PRN (18:43)
[2023-04-17] MEDS ORDERED: Dextrose 50% Abboject 50 ML SYRINGE SLOW IVP PRN (18:43)
[2023-04-17 18:45] LABS: Urine Culture Reflex No No
[2023-04-17 19:40] LABS: Lactic Acid 2.2 mmol/L (0.5-2.2)
[2023-04-17] MEDS ORDERED: Labetalol HCl 100 MG/20 ML VIAL SLOW IVP SCH (20:45)
[2023-04-17] MEDS ORDERED: Vancomycin 1 GM in Premix 1 BAG IVPB SCH (21:00)
[2023-04-17] MEDS: HYDROcodone/Acetaminophen 5/325 mg Tablet PO PRN (21:02)
[2023-04-17] MEDS: Cefepime 1 GM in Sodium Chloride 0.9% 100 ML IVPB SCH (21:04)
[2023-04-17] MEDS: Famotidine 20 MG TAB PO SCH (21:22)
[2023-04-18] MEDS ORDERED: Ipratropium/Albuterol 3 ML NEB NEB PRN (02:48)
[2023-04-18] MEDS: Vancomycin (BATCH) 1.25 GM in Premix 1 BAG IVPB SCH ×2 (02:59→14:37)
[2023-04-18] MEDS: Morphine 2 MG/ML VIAL SLOW IVP PRN ×3 (04:48→21:40)
[2023-04-18 05:19] LABS: #Basophils 0.1 thou/uL (0.0-0.2); #Eosinphils 0.3 thou/uL (0.0-0.7); #Monocytes 0.6 thou/uL (0.11-0.59); #Neutrophils 8.7 thou/uL (1.40-6.50); %Basophils 0.6 % (0.0-1.0); %Eosinophils 2.6 % (0.0-10.0); %Lymphocytes 9.8 % (21.0-51.0); %Monocytes 5.7 % (0.0-10.0); %Neutrophils 80.6 % (42.0-75.0); Hematocrit 29.1 % (42.0-52.0); Hemoglobin 9.1 g/dL (14.0-18.0); Mean Corpuscular HGB CONC 31.3 g/dL (32.0-36.0); Mean Corpuscular Hemoglobin 26.3 pg (27.0-31.0); Mean Corpuscular Volume 84.1 fl (78.0-98.0); Mean Platelet Volume 9.9 fL (7.4-10.4); Platelet Count 379 10x3/uL (130-400); RBC Distribution Width 15.6 % (11.5-14.5); Red Blood Cell (RBC) Count 3.46 mill/uL (4.70-6.10); White Blood Cell (WBC) Count 10.8 10x3/uL (4.8-10.8)
[2023-04-18 05:44] LABS: Anion Gap 15 mmol/L (10-20); BUN (Urea Nitrogen) 14 mg/dL (8.4-25.7); Calc. Creatinine Clearance 118 mL/min (70-130); Calcium 8.8 mg/dL (7.8-10.44); Carbon Dioxide 20 mmol/L (22-29); Chloride 105 mmol/L (98-107); Estimated GFR 101; Glucose 135 mg/dL (70-105); Magnesium 1.7 mg/dL (1.6-2.6); Potassium 4.1 mmol/L (3.5-5.1); Sodium 136 mmol/L (136-145)
[2023-04-18] MEDS: Furosemide 40 MG/4 ML VIAL SLOW IVP SCH ×2 (06:12→14:37)
[2023-04-18] MEDS ORDERED: NIFEdipine XL 90 MG ER.TAB PO SCH (09:00)
[2023-04-18] MEDS: Losartan 25 MG TAB PO SCH (09:23)
[2023-04-18] MEDS: Famotidine 20 MG TAB PO SCH ×2 (09:23→20:24)
[2023-04-18] MEDS: Saccharomyces boulardii 250 MG CAP PO SCH (09:23)
[2023-04-18] MEDS: Clopidogrel Bisulfate 75 MG TAB PO SCH (09:23)
[2023-04-18] MEDS: Aspirin 81 mg Enteric Coated Tablet PO SCH (09:23)
[2023-04-18] MEDS: Insulin Glargine 30 UNITS/0.3 ML VIAL SC SCH (09:24)
[2023-04-18] MEDS: Cefepime 1 GM in Sodium Chloride 0.9% 100 ML IVPB SCH ×2 (09:24→20:25)
[2023-04-18] MEDS ORDERED: NIFEdipine XL 30 MG ER.TAB PO SCH (12:15)
[2023-04-18] MEDS ORDERED: Empagliflozin 10 MG TAB PO SCH (15:00)
[2023-04-18] MEDS: HYDROcodone/Acetaminophen 5/325 mg Tablet PO PRN (20:24)
[2023-04-18] MEDS: Atorvastatin Calcium 40 MG TAB PO SCH (20:24)
[2023-04-18] MEDS ORDERED: GUAIFENESIN SF SOLN 200 MG/10 ML UDCUP PO PRN (21:23)
[2023-04-18] MEDS ORDERED: Benzonatate 100 MG CAP PO PRN (21:23)
[2023-04-19 01:11] LABS: Vancomycin, Trough 15.9 ug/mL
[2023-04-19] MEDS: Vancomycin (BATCH) 1.25 GM in Premix 1 BAG IVPB SCH ×2 (02:48→14:26)
[2023-04-19] MEDS ORDERED: Labetalol HCl 100 MG/20 ML VIAL SLOW IVP SCH (04:00)
[2023-04-19] MEDS: Morphine 2 MG/ML VIAL SLOW IVP PRN (06:08)
[2023-04-19] MEDS: Furosemide 40 MG/4 ML VIAL SLOW IVP SCH ×2 (06:09→15:49)
[2023-04-19 06:25] LABS: Anion Gap 12 mmol/L (10-20); BUN (Urea Nitrogen) 12 mg/dL (8.4-25.7); Calc. Creatinine Clearance 118 mL/min (70-130); Calcium 8.9 mg/dL (7.8-10.44); Carbon Dioxide 23 mmol/L (22-29); Chloride 105 mmol/L (98-107); Estimated GFR 101; Glucose 121 mg/dL (70-105); Sodium 136 mmol/L (136-145)
[2023-04-19] MEDS: Famotidine 20 MG TAB PO SCH ×2 (09:14→20:43)
[2023-04-19] MEDS: Insulin Glargine 30 UNITS/0.3 ML VIAL SC SCH (09:14)
[2023-04-19] MEDS: NIFEdipine XL 60 MG ER.TAB PO SCH (09:14)
[2023-04-19] MEDS: Losartan 25 MG TAB PO SCH (09:15)
[2023-04-19] MEDS: Saccharomyces boulardii 250 MG CAP PO SCH (09:15)
[2023-04-19] MEDS: Empagliflozin 10 MG TAB PO SCH (09:15)
[2023-04-19] MEDS: Cefepime 2 GM in Sodium Chloride 0.9% 100 ML IVPB SCH ×2 (09:15→20:43)
[2023-04-19] MEDS: Aspirin 81 mg Enteric Coated Tablet PO SCH (09:15)
[2023-04-19] MEDS: Clopidogrel Bisulfate 75 MG TAB PO SCH (09:16)
[2023-04-19] MEDS: HumaLOG 300 UNITS/3 ML VIAL SC PRN ×2 (12:57→17:38)
[2023-04-19] MEDS: Atorvastatin Calcium 40 MG TAB PO SCH (20:43)
[2023-04-20] MEDS: Vancomycin (BATCH) 1.25 GM in Premix 1 BAG IVPB SCH (03:23)
[2023-04-20] MEDS: HYDROcodone/Acetaminophen 5/325 mg Tablet PO PRN ×3 (03:28→20:35)
[2023-04-20 04:24] LABS: #Basophils 0.1 thou/uL (0.0-0.2); #Eosinphils 0.5 thou/uL (0.0-0.7); #Neutrophils 7.1 thou/uL (1.40-6.50); %Basophils 0.7 % (0.0-1.0); %Eosinophils 5.2 % (0.0-10.0); %Lymphocytes 11.4 % (21.0-51.0); %Monocytes 10.4 % (0.0-10.0); %Neutrophils 71.6 % (42.0-75.0); Hematocrit 29.5 % (42.0-52.0); Hemoglobin 9.2 g/dL (14.0-18.0); Mean Corpuscular HGB CONC 31.2 g/dL (32.0-36.0); Mean Corpuscular Hemoglobin 26.3 pg (27.0-31.0); Mean Corpuscular Volume 84.3 fl (78.0-98.0); Mean Platelet Volume 9.8 fL (7.4-10.4); Platelet Count 435 10x3/uL (130-400); RBC Distribution Width 15.6 % (11.5-14.5); White Blood Cell (WBC) Count 9.9 10x3/uL (4.8-10.8)
[2023-04-20 04:54] LABS: Anion Gap 18 mmol/L (10-20); BUN (Urea Nitrogen) 16 mg/dL (8.4-25.7); Calc. Creatinine Clearance 97 mL/min (70-130); Calcium 9.3 mg/dL (7.8-10.44); Carbon Dioxide 22 mmol/L (22-29); Chloride 103 mmol/L (98-107); Estimated GFR 82; Glucose 102 mg/dL (70-105); Potassium 3.8 mmol/L (3.5-5.1); Sodium 139 mmol/L (136-145)
[2023-04-20] MEDS: Furosemide 40 MG/4 ML VIAL SLOW IVP SCH ×2 (06:02→15:04)
[2023-04-20] MEDS: Insulin Glargine 30 UNITS/0.3 ML VIAL SC SCH (08:54)
[2023-04-20] MEDS: NIFEdipine XL 60 MG ER.TAB PO SCH (08:56)
[2023-04-20] MEDS: Clopidogrel Bisulfate 75 MG TAB PO SCH (08:56)
[2023-04-20] MEDS: Aspirin 81 mg Enteric Coated Tablet PO SCH (08:56)
[2023-04-20] MEDS: Famotidine 20 MG TAB PO SCH ×2 (08:56→20:30)
[2023-04-20] MEDS: Losartan 25 MG TAB PO SCH (08:56)
[2023-04-20] MEDS: Empagliflozin 10 MG TAB PO SCH (08:56)
[2023-04-20] MEDS: Saccharomyces boulardii 250 MG CAP PO SCH (08:57)
[2023-04-20] MEDS: Cefepime 2 GM in Sodium Chloride 0.9% 100 ML IVPB SCH ×2 (08:57→20:30)
[2023-04-20] MEDS: Morphine 2 MG/ML VIAL SLOW IVP PRN ×2 (10:15→16:40)
[2023-04-20 13:44] LABS: Vancomycin, Trough 25.4 ug/mL
[2023-04-20] MEDS: HumaLOG 300 UNITS/3 ML VIAL SC PRN (18:20)
[2023-04-20] MEDS: Atorvastatin Calcium 40 MG TAB PO SCH (20:30)
[2023-04-21] MEDS: Vancomycin HCl 750 MG in Sodium Chloride 0.9% 250 ML 250 ML IVPB SCH ×2 (03:13→14:44)
[2023-04-21 04:26] LABS: #Basophils 0.1 thou/uL (0.0-0.2); #Eosinphils 0.5 thou/uL (0.0-0.7); #Neutrophils 6.5 thou/uL (1.40-6.50); %Basophils 0.6 % (0.0-1.0); %Monocytes 11.2 % (0.0-10.0); %Neutrophils 71.8 % (42.0-75.0); Hematocrit 30.7 % (42.0-52.0); Hemoglobin 9.7 g/dL (14.0-18.0); Mean Corpuscular HGB CONC 31.6 g/dL (32.0-36.0); Mean Corpuscular Hemoglobin 26.6 pg (27.0-31.0); Mean Corpuscular Volume 84.1 fl (78.0-98.0); Mean Platelet Volume 9.4 fL (7.4-10.4); Platelet Count 460 10x3/uL (130-400); RBC Distribution Width 15.3 % (11.5-14.5); Red Blood Cell (RBC) Count 3.65 mill/uL (4.70-6.10)
[2023-04-21 04:50] LABS: Anion Gap 17 mmol/L (10-20); BUN (Urea Nitrogen) 18 mg/dL (8.4-25.7); Calc. Creatinine Clearance 112 mL/min (70-130); Calcium 9.3 mg/dL (7.8-10.44); Carbon Dioxide 25 mmol/L (22-29); Chloride 100 mmol/L (98-107); Estimated GFR 101; Glucose 81 mg/dL (70-105); Potassium 3.6 mmol/L (3.5-5.1); Sodium 138 mmol/L (136-145)
[2023-04-21] MEDS: Furosemide 40 MG/4 ML VIAL SLOW IVP SCH ×2 (05:56→16:06)
[2023-04-21] MEDS: HYDROcodone/Acetaminophen 5/325 mg Tablet PO PRN (08:38)
[2023-04-21] MEDS: Clopidogrel Bisulfate 75 MG TAB PO SCH (08:40)
[2023-04-21] MEDS: Famotidine 20 MG TAB PO SCH ×2 (08:40→20:25)
[2023-04-21] MEDS: Aspirin 81 mg Enteric Coated Tablet PO SCH (08:46)
[2023-04-21] MEDS: Empagliflozin 10 MG TAB PO SCH (08:47)
[2023-04-21] MEDS: Cefepime 2 GM in Sodium Chloride 0.9% 100 ML IVPB SCH ×2 (08:48→20:26)
[2023-04-21] MEDS: NIFEdipine XL 60 MG ER.TAB PO SCH (08:48)
[2023-04-21] MEDS: Insulin Glargine 30 UNITS/0.3 ML VIAL SC SCH (08:50)
[2023-04-21] MEDS: Saccharomyces boulardii 250 MG CAP PO SCH (08:53)
[2023-04-21] MEDS ORDERED: FLU VACC QS2023-24(6MOS UP)/PF 60 MCG/0.5 ML SYRINGE IM ONE (09:00)
[2023-04-21] MEDS: Losartan 25 MG TAB PO SCH (09:42)
[2023-04-21 13:57] VITALS: BMI 32.5
[2023-04-21 15:41] LABS: Troponin I 0.162 ng/mL (< 0.028)
[2023-04-21] MEDS: Atorvastatin Calcium 40 MG TAB PO SCH (20:25)
[2023-04-22] MEDS: Vancomycin HCl 750 MG in Sodium Chloride 0.9% 250 ML 250 ML IVPB SCH ×2 (02:43→14:03)
[2023-04-22 04:04] LABS: #Basophils 0.1 thou/uL (0.0-0.2); #Eosinphils 0.5 thou/uL (0.0-0.7); #Monocytes 1.2 thou/uL (0.11-0.59); %Basophils 0.6 % (0.0-1.0); %Eosinophils 4.2 % (0.0-10.0); %Lymphocytes 9.1 % (21.0-51.0); %Monocytes 11.4 % (0.0-10.0); %Neutrophils 73.9 % (42.0-75.0); Hematocrit 31.1 % (42.0-52.0); Hemoglobin 9.7 g/dL (14.0-18.0); Mean Corpuscular HGB CONC 31.2 g/dL (32.0-36.0); Mean Corpuscular Hemoglobin 26.2 pg (27.0-31.0); Mean Corpuscular Volume 84.1 fl (78.0-98.0); Mean Platelet Volume 9.5 fL (7.4-10.4); Platelet Count 486 10x3/uL (130-400); RBC Distribution Width 14.9 % (11.5-14.5); White Blood Cell (WBC) Count 10.8 10x3/uL (4.8-10.8)
[2023-04-22 04:26] LABS: Anion Gap 16 mmol/L (10-20); BUN (Urea Nitrogen) 20 mg/dL (8.4-25.7); Calc. Creatinine Clearance 101 mL/min (70-130); Calcium 9.1 mg/dL (7.8-10.44); Carbon Dioxide 24 mmol/L (22-29); Chloride 103 mmol/L (98-107); Estimated GFR 95; Glucose 82 mg/dL (70-105); Potassium 3.7 mmol/L (3.5-5.1); Sodium 139 mmol/L (136-145)
[2023-04-22] MEDS: Furosemide 40 MG/4 ML VIAL SLOW IVP SCH ×2 (05:59→14:03)
[2023-04-22] MEDS: HYDROcodone/Acetaminophen 5/325 mg Tablet PO PRN ×2 (09:44→20:28)
[2023-04-22] MEDS: Losartan 25 MG TAB PO SCH (09:44)
[2023-04-22] MEDS: NIFEdipine XL 60 MG ER.TAB PO SCH (09:44)
[2023-04-22] MEDS: Famotidine 20 MG TAB PO SCH ×2 (09:45→20:25)
[2023-04-22] MEDS: Saccharomyces boulardii 250 MG CAP PO SCH (09:45)
[2023-04-22] MEDS: Aspirin 81 mg Enteric Coated Tablet PO SCH (09:46)
[2023-04-22] MEDS: Clopidogrel Bisulfate 75 MG TAB PO SCH (09:46)
[2023-04-22] MEDS: Insulin Glargine 30 UNITS/0.3 ML VIAL SC SCH (09:46)
[2023-04-22] MEDS: Empagliflozin 10 MG TAB PO SCH (09:46)
[2023-04-22] MEDS: Cefepime 2 GM in Sodium Chloride 0.9% 100 ML IVPB SCH ×2 (09:46→20:25)
[2023-04-22 13:15] LABS: Vancomycin, Trough 15.3 ug/mL
[2023-04-22] MEDS: Atorvastatin Calcium 40 MG TAB PO SCH (20:25)
[2023-04-23] MEDS: Vancomycin HCl 750 MG in Sodium Chloride 0.9% 250 ML 250 ML IVPB SCH (02:10)
[2023-04-23 04:40] LABS: #Basophils 0.1 thou/uL (0.0-0.2); #Eosinphils 0.6 thou/uL (0.0-0.7); #Monocytes 1.2 thou/uL (0.11-0.59); #Neutrophils 6.9 thou/uL (1.40-6.50); %Basophils 0.9 % (0.0-1.0); %Eosinophils 6.1 % (0.0-10.0); %Lymphocytes 12.9 % (21.0-51.0); %Monocytes 11.7 % (0.0-10.0); %Neutrophils 67.7 % (42.0-75.0); Hematocrit 34.9 % (42.0-52.0); Hemoglobin 10.8 g/dL (14.0-18.0); Mean Corpuscular HGB CONC 30.9 g/dL (32.0-36.0); Mean Corpuscular Hemoglobin 25.8 pg (27.0-31.0); Mean Corpuscular Volume 83.5 fl (78.0-98.0); Mean Platelet Volume 9.5 fL (7.4-10.4); Platelet Count 496 10x3/uL (130-400); RBC Distribution Width 14.7 % (11.5-14.5); Red Blood Cell (RBC) Count 4.18 mill/uL (4.70-6.10); White Blood Cell (WBC) Count 10.2 10x3/uL (4.8-10.8)
[2023-04-23 05:09] LABS: Anion Gap 17 mmol/L (10-20); BUN (Urea Nitrogen) 20 mg/dL (8.4-25.7); Calc. Creatinine Clearance 114 mL/min (70-130); Calcium 8.9 mg/dL (7.8-10.44); Carbon Dioxide 21 mmol/L (22-29); Chloride 103 mmol/L (98-107); Estimated GFR 102; Glucose 71 mg/dL (70-105); Potassium 3.7 mmol/L (3.5-5.1); Sodium 137 mmol/L (136-145)
[2023-04-23] MEDS ORDERED: Furosemide 40 MG TAB PO SCH (07:30)
[2023-04-23] MEDS: HYDROcodone/Acetaminophen 5/325 mg Tablet PO PRN (09:22)
[2023-04-23] MEDS: Aspirin 81 mg Enteric Coated Tablet PO SCH (09:23)
[2023-04-23] MEDS: Losartan 25 MG TAB PO SCH (09:23)
[2023-04-23] MEDS: Cefepime 2 GM in Sodium Chloride 0.9% 100 ML IVPB SCH (09:23)
[2023-04-23] MEDS: NIFEdipine XL 60 MG ER.TAB PO SCH (09:23)
[2023-04-23] MEDS: Famotidine 20 MG TAB PO SCH (09:24)
[2023-04-23] MEDS: Empagliflozin 10 MG TAB PO SCH (09:24)
[2023-04-23] MEDS: Saccharomyces boulardii 250 MG CAP PO SCH (09:24)
[2023-04-23] MEDS: Clopidogrel Bisulfate 75 MG TAB PO SCH (09:24)
[2023-04-23] MEDS: Insulin Glargine 30 UNITS/0.3 ML VIAL SC SCH (09:28)
[2023-04-23 12:28] VITALS: BP 132/58; TEMP 97.8
== END 2023-04-23 13:30 | disposition home or self-care (01) | DRG 871 ==
LOC: ERS 16:12 → 2NO 18:02 → OBSVTOIN 18:02
PROVIDERS: ADMIT Hospitalist; ATTEND Internal Medicine
DX: A41.9 Sepsis, unspecified organism (principal); I50.33 Acute on chronic diastolic (congestive) heart failure; E11.52 Type 2 diabetes mellitus with diabetic peripheral angiopathy with gangrene; L03.116 Cellulitis of left lower limb; L03.115 Cellulitis of right lower limb; L97.819 Non-pressure chronic ulcer of other part of right lower leg with unspecified severity; L97.829 Non-pressure chronic ulcer of other part of left lower leg with unspecified severity; E78.5 Hyperlipidemia, unspecified; I25.10 Atherosclerotic heart disease of native coronary artery without angina pectoris; E11.65 Type 2 diabetes mellitus with hyperglycemia; I25.5 Ischemic cardiomyopathy; I11.0 Hypertensive heart disease with heart failure; I83.018 Varicose veins of right lower extremity with ulcer other part of lower leg; I83.028 Varicose veins of left lower extremity with ulcer other part of lower leg; Z91.011 Allergy to milk products; Z91.09 Other allergy status, other than to drugs and biological substances; Z79.899 Other long term (current) drug therapy; Z79.84 Long term (current) use of oral hypoglycemic drugs; Z79.82 Long term (current) use of aspirin; Z90.49 Acquired absence of other specified parts of digestive tract; Z98.890 Other specified postprocedural states; Z95.5 Presence of coronary angioplasty implant and graft
CPT/HCPCS: 36415; 36416; 71045; 80048; 80053; 80202; 81001; 83605; 83735; 83880; 84100; 84443; 84484; 85025; 86140; 87040; 87070; 87077; 87086; 87186; 87205; 93005; 93010; 93306; 93798; 93923; 96365; 96367; 96375; 97139; J0456; J0692; J1650; J1815; J1940; J2270; J2272; J2543; J3370; J3370-JW; J3490; J7050

== ENCOUNTER 2023-05-26 11:20 | Inpatient (IN) | payer OTHER, SELFPAY ==
[2023-05-26 12:06] LABS: #Basophils 0.1 thou/uL (0.0-0.2); #Eosinphils 0.2 thou/uL (0.0-0.7); #Monocytes 0.6 thou/uL (0.11-0.59); %Basophils 0.5 % (0.0-1.0); %Eosinophils 2.4 % (0.0-10.0); %Lymphocytes 9.3 % (21.0-51.0); %Monocytes 6.3 % (0.0-10.0); %Neutrophils 81.2 % (42.0-75.0); Hematocrit 33.9 % (42.0-52.0); Hemoglobin 10.7 g/dL (14.0-18.0); Mean Corpuscular HGB CONC 31.6 g/dL (32.0-36.0); Mean Corpuscular Hemoglobin 24.8 pg (27.0-31.0); Mean Corpuscular Volume 78.7 fl (78.0-98.0); Mean Platelet Volume 10.2 fL (7.4-10.4); Platelet Count 277 10x3/uL (130-400); RBC Distribution Width 14.7 % (11.5-14.5); Red Blood Cell (RBC) Count 4.31 mill/uL (4.70-6.10); White Blood Cell (WBC) Count 9.9 10x3/uL (4.8-10.8)
[2023-05-26 12:30] LABS: ALT (SGPT) 22 U/L (8-55); AST (SGOT) 21 U/L (5-34); Albumin 3.9 g/dL (3.5-5.0); Alkaline Phosphatase 138 U/L (40-110); Anion Gap 16 mmol/L (10-20); BUN (Urea Nitrogen) 19 mg/dL (8.4-25.7); Bilirubin, Total 0.3 mg/dL (0.2-1.2); Calc. Creatinine Clearance 0 mL/min (70-130); Calcium 9.5 mg/dL (7.8-10.44); Carbon Dioxide 20 mmol/L (22-29); Chloride 105 mmol/L (98-107); Estimated GFR 91; Globulin 3.7 g/dL (2.4-3.5); Glucose 113 mg/dL (70-105); Potassium 4.2 mmol/L (3.5-5.1); Protein, Total 7.6 g/dL (6.0-8.3); Sodium 137 mmol/L (136-145)
[2023-05-26] MEDS ORDERED: Cefepime 2 GM VIAL ONE (12:59)
[2023-05-26] MEDS ORDERED: Sodium Chloride 0.9% 100 ML ONE (12:59)
[2023-05-26] MEDS ORDERED: Vancomycin (BATCH) 1.5 GM in Premix 1 BAG IVPB SCH (14:15)
[2023-05-26 14:48] VITALS: BMI 30.7
[2023-05-26] MEDS ORDERED: HumaLOG 300 UNITS/3 ML VIAL SC PRN ×2 (15:13)
[2023-05-26] MEDS ORDERED: Glucagon 1 MG/ML KIT IM PRN (15:13)
[2023-05-26] MEDS ORDERED: Dextrose 5% in Water 1,000 ML IV PRN (15:13)
[2023-05-26] MEDS ORDERED: Dextrose 50% Abboject 50 ML SYRINGE SLOW IVP PRN (15:13)
[2023-05-26] MEDS ORDERED: [UNRECOGNIZED DRUG - REMARK] IVPB PRN (15:19)
[2023-05-26] MEDS ORDERED: Ondansetron ODT 4 MG TAB PO PRN (15:31)
[2023-05-26] MEDS ORDERED: Senokot S 8.6-50 MG TAB PO PRN (15:31)
[2023-05-26] MEDS ORDERED: Ondansetron PF 4 MG/2 ML Vial IVP PRN (15:31)
[2023-05-26] MEDS ORDERED: Calcium Carbonate 500 MG ChewTAB PO PRN (15:31)
[2023-05-26] MEDS: HYDROcodone/Acetaminophen 5/325 mg Tablet PO PRN (15:46)
[2023-05-26] MEDS: Gabapentin 100 MG CAP PO SCH ×3 (18:26→20:17)
[2023-05-26 18:47] LABS: Lactic Acid 0.9 mmol/L (0.5-2.2)
[2023-05-26] MEDS: Cholecalciferol 1,000 UNITS (25 MCG) TAB PO SCH (20:17)
[2023-05-26] MEDS: Cyanocobalamin (Vitamin B-12) 1,000 MCG TAB PO SCH (20:17)
[2023-05-26] MEDS ORDERED: Morphine 4 MG/ML VIAL SLOW IVP SCH (20:45)
[2023-05-26] MEDS ORDERED: Vancomycin 1 GM in Premix 1 BAG IVPB SCH (21:00)
[2023-05-26] MEDS ORDERED: Heparin 5,000 UNITS/ML VIAL SC SCH (21:00)
[2023-05-26] MEDS ORDERED: cefTRIAXone\\ROCEPHIN 2 GM in Sodium Chloride 0.9% 100 ML IVPB SCH (21:00)
[2023-05-26] MEDS ORDERED: hydrALAZINE 20 MG/ML VIAL SLOW IVP PRN (21:27)
[2023-05-27] MEDS: HYDROcodone/Acetaminophen 5/325 mg Tablet PO PRN ×2 (03:19→11:07)
[2023-05-27] MEDS ORDERED: Vancomycin 1 GM in Premix 1 BAG IVPB SCH ×2 (05:00→06:00)
[2023-05-27 06:14] LABS: #Basophils 0.1 thou/uL (0.0-0.2); #Eosinphils 0.5 thou/uL (0.0-0.7); #Neutrophils 7.4 thou/uL (1.40-6.50); %Basophils 0.7 % (0.0-1.0); %Eosinophils 4.8 % (0.0-10.0); %Lymphocytes 8.2 % (21.0-51.0); %Monocytes 9.9 % (0.0-10.0); %Neutrophils 76.1 % (42.0-75.0); Hematocrit 32.5 % (42.0-52.0); Mean Corpuscular HGB CONC 30.8 g/dL (32.0-36.0); Mean Corpuscular Hemoglobin 24.8 pg (27.0-31.0); Mean Corpuscular Volume 80.6 fl (78.0-98.0); Platelet Count 243 10x3/uL (130-400); Red Blood Cell (RBC) Count 4.03 mill/uL (4.70-6.10); White Blood Cell (WBC) Count 9.7 10x3/uL (4.8-10.8)
[2023-05-27 06:25] LABS: Anion Gap 13 mmol/L (10-20); BUN (Urea Nitrogen) 20 mg/dL (8.4-25.7); Calc. Creatinine Clearance 91 mL/min (70-130); Calcium 9.3 mg/dL (7.8-10.44); Carbon Dioxide 21 mmol/L (22-29); Chloride 106 mmol/L (98-107); Estimated GFR 84; Glucose 94 mg/dL (70-105); Potassium 4.3 mmol/L (3.5-5.1); Sodium 136 mmol/L (136-145)
[2023-05-27 06:45] LABS: Hemoglobin A1c 7.7 % (4.0-6.0)
[2023-05-27] MEDS: NIFEdipine XL 90 MG ER.TAB PO SCH (08:47)
[2023-05-27] MEDS: Losartan 25 MG TAB PO SCH (08:48)
[2023-05-27] MEDS: Acetaminophen 325 MG TAB PO PRN ×2 (08:48→20:31)
[2023-05-27] MEDS: Aspirin 81 mg Enteric Coated Tablet PO SCH (08:48)
[2023-05-27] MEDS: Furosemide 20 MG TAB PO SCH (08:49)
[2023-05-27] MEDS: Empagliflozin 10 MG TAB PO SCH (08:49)
[2023-05-27] MEDS: Gabapentin 100 MG CAP PO SCH ×2 (08:49→20:30)
[2023-05-27] MEDS: Saccharomyces boulardii 250 MG CAP PO SCH (08:49)
[2023-05-27] MEDS: Clopidogrel Bisulfate 75 MG TAB PO SCH (08:50)
[2023-05-27] MEDS ORDERED: HYDROcodone/Acetaminophen 5/325 mg Tablet PO PRN (11:10)
[2023-05-27] MEDS ORDERED: HYDROcodone/Acetaminophen 5/325 mg Tablet PO SCH (11:15)
[2023-05-27] MEDS ORDERED: Iopamidol-370 76% 500 ML MDV (1 ML CHARGE) ONE (12:54)
[2023-05-27] MEDS: Cyanocobalamin (Vitamin B-12) 1,000 MCG TAB PO SCH (20:29)
[2023-05-27] MEDS: Cholecalciferol 1,000 UNITS (25 MCG) TAB PO SCH (20:31)
[2023-05-28 02:09] VITALS: TEMP 98.4
[2023-05-28 05:55] LABS: #Basophils 0.1 thou/uL (0.0-0.2); #Eosinphils 0.4 thou/uL (0.0-0.7); #Monocytes 0.8 thou/uL (0.11-0.59); #Neutrophils 6.8 thou/uL (1.40-6.50); %Basophils 0.8 % (0.0-1.0); %Eosinophils 4.2 % (0.0-10.0); %Monocytes 9.1 % (0.0-10.0); %Neutrophils 75.7 % (42.0-75.0); Hematocrit 34.4 % (42.0-52.0); Hemoglobin 10.8 g/dL (14.0-18.0); Mean Corpuscular HGB CONC 31.4 g/dL (32.0-36.0); Mean Corpuscular Hemoglobin 24.8 pg (27.0-31.0); Mean Corpuscular Volume 79.1 fl (78.0-98.0); Mean Platelet Volume 9.5 fL (7.4-10.4); Platelet Count 239 10x3/uL (130-400); Red Blood Cell (RBC) Count 4.35 mill/uL (4.70-6.10)
[2023-05-28 06:30] LABS: Anion Gap 16 mmol/L (10-20); BUN (Urea Nitrogen) 19 mg/dL (8.4-25.7); Calc. Creatinine Clearance 96 mL/min (70-130); Calcium 9.8 mg/dL (7.8-10.44); Carbon Dioxide 20 mmol/L (22-29); Chloride 104 mmol/L (98-107); Estimated GFR 89; Glucose 89 mg/dL (70-105); Potassium 4.4 mmol/L (3.5-5.1); Sodium 136 mmol/L (136-145)
[2023-05-28] MEDS: Clopidogrel Bisulfate 75 MG TAB PO SCH (08:51)
[2023-05-28] MEDS: Aspirin 81 mg Enteric Coated Tablet PO SCH (08:51)
[2023-05-28] MEDS: Acetaminophen 325 MG TAB PO PRN (08:51)
[2023-05-28] MEDS: Losartan 25 MG TAB PO SCH (08:51)
[2023-05-28] MEDS: Saccharomyces boulardii 250 MG CAP PO SCH (08:51)
[2023-05-28] MEDS: Furosemide 20 MG TAB PO SCH (08:51)
[2023-05-28] MEDS: NIFEdipine XL 90 MG ER.TAB PO SCH (08:51)
[2023-05-28] MEDS: Empagliflozin 10 MG TAB PO SCH (08:52)
[2023-05-28] MEDS ORDERED: HYDROcodone/Acetaminophen 5/325 mg Tablet PO PRN (09:28)
[2023-05-28] MEDS: HYDROcodone/Acetaminophen 10/325 mg Tablet PO PRN ×2 (09:52→14:21)
[2023-05-28 12:11] VITALS: BP 163/87
[2023-05-28] MEDS ORDERED: Atorvastatin Calcium 40 MG TAB PO SCH (21:00)
== END 2023-05-28 17:21 | disposition home or self-care (01) | DRG 300 ==
LOC: ERS 11:20 → T4-A 13:01 → OBSVTOIN 13:51 → T4-A 14:09
PROVIDERS: ADMIT Internal Medicine; ATTEND Internal Medicine Critical Care Medicine
DX: E11.51 Type 2 diabetes mellitus with diabetic peripheral angiopathy without gangrene (principal); I50.32 Chronic diastolic (congestive) heart failure; L97.929 Non-pressure chronic ulcer of unspecified part of left lower leg with unspecified severity; L97.919 Non-pressure chronic ulcer of unspecified part of right lower leg with unspecified severity; I25.10 Atherosclerotic heart disease of native coronary artery without angina pectoris; I11.0 Hypertensive heart disease with heart failure; E78.5 Hyperlipidemia, unspecified; E55.9 Vitamin D deficiency, unspecified; E53.8 Deficiency of other specified B group vitamins; I77.1 Stricture of artery; I70.203 Unspecified atherosclerosis of native arteries of extremities, bilateral legs; Z79.899 Other long term (current) drug therapy; Z79.84 Long term (current) use of oral hypoglycemic drugs; Z95.5 Presence of coronary angioplasty implant and graft; Z82.49 Family history of ischemic heart disease and other diseases of the circulatory system; Z83.3 Family history of diabetes mellitus
CPT/HCPCS: 36415; 36416; 75635; 80048; 80053; 83036; 83605; 85025; 86140; 87040; 96365; 97139; J0360; J0692; J0696; J2270; J3370; J3490

== ENCOUNTER 2023-05-31 11:58 | Observation (INO) | payer OTHER, SELFPAY ==
[2023-05-31] MEDS ORDERED: Morphine 4 MG/ML VIAL ONE ×2 (13:01→14:33)
[2023-05-31] MEDS ORDERED: Ondansetron PF 4 MG/2 ML Vial ONE (13:01)
[2023-05-31 13:30] LABS: #Basophils 0.1 thou/uL (0.0-0.2); #Eosinphils 0.4 thou/uL (0.0-0.7); #Monocytes 0.6 thou/uL (0.11-0.59); #Neutrophils 7.9 thou/uL (1.40-6.50); %Basophils 0.5 % (0.0-1.0); %Eosinophils 4.3 % (0.0-10.0); %Monocytes 6.3 % (0.0-10.0); %Neutrophils 78.4 % (42.0-75.0); Hematocrit 31.9 % (42.0-52.0); Hemoglobin 10.2 g/dL (14.0-18.0); Mean Corpuscular Hemoglobin 25.1 pg (27.0-31.0); Mean Corpuscular Volume 78.6 fl (78.0-98.0); Mean Platelet Volume 10.2 fL (7.4-10.4); Platelet Count 294 10x3/uL (130-400); RBC Distribution Width 15.3 % (11.5-14.5); Red Blood Cell (RBC) Count 4.06 mill/uL (4.70-6.10); White Blood Cell (WBC) Count 10.1 10x3/uL (4.8-10.8)
[2023-05-31 13:48] LABS: INR-International Normal Ratio 0.9; Prothrombin Time 12.4 sec (12.0-14.7)
[2023-05-31 13:49] LABS: PTT 38.6 sec (22.9-36.1)
[2023-05-31 13:56] LABS: ALT (SGPT) 27 U/L (8-55); AST (SGOT) 21 U/L (5-34); Alkaline Phosphatase 166 U/L (40-110); Anion Gap 15 mmol/L (10-20); BUN (Urea Nitrogen) 17 mg/dL (8.4-25.7); Bilirubin, Total 0.4 mg/dL (0.2-1.2); Calc. Creatinine Clearance 0 mL/min (70-130); Calcium 9.7 mg/dL (7.8-10.44); Carbon Dioxide 19 mmol/L (22-29); Chloride 105 mmol/L (98-107); Estimated GFR 99; Globulin 3.7 g/dL (2.4-3.5); Glucose 133 mg/dL (70-105); Potassium 4.5 mmol/L (3.5-5.1); Protein, Total 7.7 g/dL (6.0-8.3); Sodium 134 mmol/L (136-145)
[2023-05-31 15:36] VITALS: BMI 30.9
[2023-05-31] MEDS ORDERED: HumaLOG 300 UNITS/3 ML VIAL SC PRN (15:38)
[2023-05-31] MEDS ORDERED: Dextrose 5% in Water 1,000 ML IV PRN (15:38)
[2023-05-31] MEDS ORDERED: Dextrose 50% Abboject 50 ML SYRINGE SLOW IVP PRN (15:38)
[2023-05-31] MEDS ORDERED: Acetaminophen 325 MG TAB PO PRN (15:38)
[2023-05-31] MEDS ORDERED: Glucagon 1 MG/ML KIT IM PRN (15:38)
[2023-05-31] MEDS ORDERED: FLU VACC QS2023-24(6MOS UP)/PF 60 MCG/0.5 ML SYRINGE IM ONE (17:45)
[2023-05-31] MEDS: Atorvastatin Calcium 40 MG TAB PO SCH (19:58)
[2023-05-31] MEDS: HYDROcodone/Acetaminophen 5/325 mg Tablet PO PRN (19:58)
[2023-05-31] MEDS ORDERED: Heparin 5,000 UNITS/ML VIAL SC SCH (21:00)
[2023-06-01] MEDS: HYDROcodone/Acetaminophen 5/325 mg Tablet PO PRN ×5 (00:47→22:39)
[2023-06-01] MEDS: Clopidogrel Bisulfate 75 MG TAB PO SCH (09:11)
[2023-06-01] MEDS: Furosemide 20 MG TAB PO SCH (09:12)
[2023-06-01] MEDS: Losartan 25 MG TAB PO SCH (09:12)
[2023-06-01] MEDS: Empagliflozin 10 MG TAB PO SCH (09:13)
[2023-06-01 10:02] LABS: #Basophils 0.1 thou/uL (0.0-0.2); #Eosinphils 0.5 thou/uL (0.0-0.7); #Monocytes 0.8 thou/uL (0.11-0.59); #Neutrophils 7.8 thou/uL (1.40-6.50); %Basophils 0.7 % (0.0-1.0); %Lymphocytes 11.3 % (21.0-51.0); %Neutrophils 74.7 % (42.0-75.0); Hematocrit 31.1 % (42.0-52.0); Hemoglobin 9.7 g/dL (14.0-18.0); Mean Corpuscular HGB CONC 31.2 g/dL (32.0-36.0); Mean Corpuscular Hemoglobin 25.5 pg (27.0-31.0); Mean Platelet Volume 9.8 fL (7.4-10.4); Platelet Count 284 10x3/uL (130-400); RBC Distribution Width 15.6 % (11.5-14.5); White Blood Cell (WBC) Count 10.4 10x3/uL (4.8-10.8)
[2023-06-01] MEDS ORDERED: Morphine 2 MG/ML VIAL SLOW IVP PRN (10:19)
[2023-06-01 10:20] LABS: Mean Corpuscular Volume 81.8 fl (78.0-98.0)
[2023-06-01 10:22] LABS: Anion Gap 14 mmol/L (10-20); BUN (Urea Nitrogen) 15 mg/dL (8.4-25.7); Calc. Creatinine Clearance 108 mL/min (70-130); Carbon Dioxide 21 mmol/L (22-29); Chloride 105 mmol/L (98-107); Potassium 4.8 mmol/L (3.5-5.1); Sodium 135 mmol/L (136-145)
[2023-06-01 10:23] LABS: Calcium 9.5 mg/dL (7.8-10.44); Estimated GFR 101; Glucose 114 mg/dL (70-105)
[2023-06-01] MEDS ORDERED: Morphine 4 MG/ML VIAL SLOW IVP PRN (10:23)
[2023-06-01] MEDS: Atorvastatin Calcium 40 MG TAB PO SCH (19:57)
[2023-06-02] MEDS: Losartan 25 MG TAB PO SCH (09:07)
[2023-06-02] MEDS: HYDROcodone/Acetaminophen 5/325 mg Tablet PO PRN (09:08)
[2023-06-02] MEDS: Furosemide 20 MG TAB PO SCH (09:08)
[2023-06-02] MEDS: Clopidogrel Bisulfate 75 MG TAB PO SCH (09:08)
[2023-06-02] MEDS: Empagliflozin 10 MG TAB PO SCH (09:08)
[2023-06-02 12:56] VITALS: BP 168/88; TEMP 98
== END 2023-06-02 12:45 | disposition home or self-care (01) ==
LOC: ERS 11:58 → ERHOLD 14:41 → T4-A 17:35
PROVIDERS: ADMIT Internal Medicine; ATTEND Internal Medicine
DX: E11.622 Type 2 diabetes mellitus with other skin ulcer (principal); L97.919 Non-pressure chronic ulcer of unspecified part of right lower leg with unspecified severity; L97.929 Non-pressure chronic ulcer of unspecified part of left lower leg with unspecified severity; E11.51 Type 2 diabetes mellitus with diabetic peripheral angiopathy without gangrene; I70.203 Unspecified atherosclerosis of native arteries of extremities, bilateral legs; I11.0 Hypertensive heart disease with heart failure; I50.32 Chronic diastolic (congestive) heart failure; I25.10 Atherosclerotic heart disease of native coronary artery without angina pectoris; E78.5 Hyperlipidemia, unspecified; Z91.011 Allergy to milk products; Z90.89 Acquired absence of other organs; Z79.4 Long term (current) use of insulin; Z79.84 Long term (current) use of oral hypoglycemic drugs; Z79.899 Other long term (current) drug therapy
CPT/HCPCS: 36415; 36416; 80048; 80053; 83605; 85025; 85610; 85730; 87040; 96374; 96375; 96376; 97139; G0378; J2270; J2405

== ENCOUNTER 2023-06-21 07:54 | Emergency (ER) | payer OTHER ==
[2023-06-21 09:03] LABS: #Basophils 0.1 thou/uL (0.0-0.2); #Eosinphils 0.3 thou/uL (0.0-0.7); #Monocytes 1.1 thou/uL (0.11-0.59); #Neutrophils 9.2 thou/uL (1.40-6.50); %Basophils 0.7 % (0.0-1.0); %Eosinophils 2.4 % (0.0-10.0); %Lymphocytes 10.2 % (21.0-51.0); %Monocytes 9.4 % (0.0-10.0); Hematocrit 24.3 % (42.0-52.0); Hemoglobin 7.5 g/dL (14.0-18.0); Mean Corpuscular HGB CONC 30.9 g/dL (32.0-36.0); Mean Corpuscular Hemoglobin 24.4 pg (27.0-31.0); Mean Corpuscular Volume 79.2 fl (78.0-98.0); Mean Platelet Volume 10.1 fL (7.4-10.4); Platelet Count 298 10x3/uL (130-400); RBC Distribution Width 15.9 % (11.5-14.5); Red Blood Cell (RBC) Count 3.07 mill/uL (4.70-6.10); White Blood Cell (WBC) Count 11.9 10x3/uL (4.8-10.8)
[2023-06-21 09:30] LABS: ALT (SGPT) 15 U/L (8-55); AST (SGOT) 13 U/L (5-34); Albumin 3.5 g/dL (3.5-5.0); Alkaline Phosphatase 139 U/L (40-110); Anion Gap 15 mmol/L (10-20); BUN (Urea Nitrogen) 36 mg/dL (8.4-25.7); Bilirubin, Total 0.3 mg/dL (0.2-1.2); Calc. Creatinine Clearance 0 mL/min (70-130); Calcium 8.8 mg/dL (7.8-10.44); Carbon Dioxide 20 mmol/L (22-29); Chloride 107 mmol/L (98-107); Estimated GFR 68; Globulin 3.3 g/dL (2.4-3.5); Glucose 149 mg/dL (70-105); Potassium 4.3 mmol/L (3.5-5.1); Protein, Total 6.8 g/dL (6.0-8.3); Sodium 138 mmol/L (136-145)
[2023-06-21] MEDS ORDERED: HYDROcodone/Acetaminophen 10/325 mg Tablet ONE (09:45)
== END 2023-06-21 10:18 | disposition home or self-care (01) ==
LOC: ERS 07:54
DX: I73.9 Peripheral vascular disease, unspecified (principal); L97.929 Non-pressure chronic ulcer of unspecified part of left lower leg with unspecified severity; L97.919 Non-pressure chronic ulcer of unspecified part of right lower leg with unspecified severity; I10 Essential (primary) hypertension; E11.9 Type 2 diabetes mellitus without complications; Z79.899 Other long term (current) drug therapy; Z79.84 Long term (current) use of oral hypoglycemic drugs
CPT/HCPCS: 36415; 80053; 83605; 85025; 87070; 87077; 87186; 87205

== ENCOUNTER 2025-05-21 10:52 | Outpatient (CLI) | payer OTHER | END 2025-05-21 10:53 | disposition home or self-care (01) | LOC: BICRAD 10:52 | PROVIDERS: ATTEND Student in an Organized Health Care Education/Training Program | DX: Z02.71 Encounter for disability determination (principal); M13.0 Polyarthritis, unspecified | CPT/HCPCS: 71046 ==